=== PATIENT | female | born 1950 | race Caucasian/White ===

== ENCOUNTER 2022-05-18 06:45 | Day surgery (SDC) | payer MEDICARE, BC, SELFPAY ==
[2022-05-18] MEDS: LACTATED RINGERS 1000 ML 1,000 ML 100 ML IV ×2 (07:00→11:37)
[2022-05-18 07:20] VITALS: BP 171/82; PULSE 65; RESP 16; TEMP 36.9; O2SAT 97
[2022-05-18 07:23] VITALS: BMI 23.1
--- NOTE | 2022-05-18 08:15 | CRLHL7_ITS ---
For Patients: As a result of the Century Cures Act, medical imaging exams and procedure reports are released immediately into your electronic medical record. You may view this report before your referring provider. If you have questions, please contact your health care provider. HISTORY: 72-year-old female. Left breast cancer. TECHNIQUE: 0.75 millicuries of [id number] sulfur colloid was injected in the left breast for sentinel lymph node localization. Images were not obtained. Dictated by Dante Craig MD @ 05/18/2022 8:52:11 AM (Electronically Signed)
[2022-05-18] MEDS: CEFAZOLIN 2 GM INJ IVP (09:25)
[2022-05-18] MEDS: ISOSULFAN BLUE 5 ML VIAL 3 ML INJECTION (09:27)
[2022-05-18] MEDS: BUPIVACAINE 0.25% 30 ML 10 ML INJECTION (09:40)
[2022-05-18] MEDS: LIDOCAINE 0.5%-EPI 1:200,000 50 ML VIAL 10 ML INJECTION (09:40)
--- NOTE | 2022-05-18 09:54 | CRLHL7_ITS ---
For Patients: As a result of the Cures Act, medical imaging exams and procedure reports are released immediately into your electronic medical record. You may view this report before your referring provider. If you have questions, please contact your health care provider. LEFT BREAST SPECIMEN RADIOGRAPH INDICATION: Breast cancer. Lumpectomy. TECHNIQUE: Single specimen radiograph of resected LEFT breast tissue. FINDINGS: The breast specimen contains a biopsy clip, microcalcifications, and an area of apparent spiculation. IMPRESSION: LEFT breast specimen radiograph as described. ACR not applicable Dictated by: Enrique Mcdowell MD @05/18/2022 11:00:26 AM jj/Dictated by: Enrique Mcdowell MD @ 05/18/2022 11:00:00 AM (Electronically Signed)
--- NOTE | 2022-05-18 10:05 | SUR.OPER ---
PATIENT QUESTIONS ANSWERED SATISFACTORILY PREOPERATIVELY.? PATIENT BROUGHT TO OR #3 PER CART.? Patient positioned supine on OR #1 bed.? The perioperative?team supported arms bilaterally on arm boards.? Final approval of positioning by surgeon.? SAFETY TIME OUT PREFORMED PRIOR TO INFECTION OF ISOSULFAN BLUE BY Gonzalo REA MD AT 09:27.
[2022-05-18 12:15] VITALS: BP 142/76; PULSE 59; RESP 14; TEMP 36.1; O2SAT 98
--- NOTE | 2022-05-18 12:22 | PM.GSPRC ---
Operative Note Date of procedure: 05/19/22 Type of Procedure: 1. Left lumpectomy. 2. Left Axillary lymph node dissection. Procedure Description: After discussing the risks and benefits of the procedure, the patient signed informed consent.? The operative site was marked and the patient was brought to the operating room and placed on the operating table in supine position.? Care was taken to pad the patient's pressure points.?? The patient was then sedated] by anesthesia.?? The operative site was then prepped and draped in the usual sterile fashion.? A time-out was then performed. ? The mixture of Lidocaine and Marcaine was used as local anesthetic and was injected at the site of the incision. A slightly oblique elliptical skin incision was made in the left breast at 5:00 around the area of skin puckering. This was done with a scalpel. Subcutaneous fat and breast tissue were then dissected with cautery. With frequent palpation of the left breast mass, it was excised with cautery. Margins of the specimen were inked and the specimen was then sent to mammography first to confirm presence of the wire and the clip and to pathology afterwards for gross margins. Mammography confirmed the presence of the clip. While pathology was examining the specimen for margins, we proceeded with the sentinel lymph node biopsy. The radioactive tracer was injected personally by me in the preoperative area. At least 1 hour was given for the tracer travel to the left axilla. Three ml (milliliters) of Lymphazurin blue was personally injected by me near the left nipple for sentinel lymph node identification. This was done prior to making lumpectomy incision. A [place] counter was brought onto the field in the Left axilla to identify the best area for the sentinel node biopsy. The signal was very weak. An oblique skin incision was then made over that area. Subcutaneous tissues were dissected with electrocautery. Deltopectoral fascia was incised with cautery. I spent a lot of time looking for sentinel node however the signal was almost non-existent. With palpating the left axilla, I identified a firm node at the lateral edge of the pectoralis muscle. This was concerning for grossly metastatic disease. I elected to proceed with left axillary node dissection. Multiple firm nodes were palpated at the lateral edge of the pectoralis muscle. The pectoralis muscle was retracted and these firm nodes as well as other laila tissue posterior to pectoralis minor were excised with cautery. Hemostasis was achieved with clamps and ties and with cautery. The superior border of the axilla was identified as the left axillary vein. Axillary fat below the axillary vein was placed under tension and carefully dissected off with cautery. Thoracodorsal bundle including the nerve was identified and retracted laterally. Long thoracic nerve was identified medially and was overlying serratus anterior muscle. This was left undisturbed. Care was taken not to injure those structures during the dissection. I attempted to spare the intercostal brachial cutaneous nerves but this was not possible because some of them were going through the plain of dissection and into the firm matted axillary nodes. Axillary fat was then further mobilized with cautery and when it was free, it was then removed. This was sent to pathology as the left axillary node dissection. A 19 Brian drain was placed into the axilla through a separate stab skin incision in the left lateral chest. This was secured to the skin with a nylon suture. The deltopectoral fascia was then reapproximated with interrupted 3-0 Vicryl sutures. The dermis of the axillary incision was then reapproximated with interrupted 3-0 Vicryl sutures. Pathologist reviewed the specimen and the tumor. The tumor was described as large and abutting the superior and posterior margins. Removal of additional margins was recommended. A new superior margin was excised with cautery. This was inked for orientation and sent to pathology for permanent section. A new posterior margin was excised with cautery as well. This mostly involved the pectoralis fascia. This was inked for orientation and sent to pathology as a new posterior margin. Surgical field was examined for bleeding and any bleeding was controlled with electrocautery. The incisional cavity was then irrigated with saline. Vascular clips were used to kishan the place where the tumor was excised. Breast tissue was mobilized with cautery for tension free closure and re-approximated with interrupted 2-0 Vicryl stitches. Interrupted subdermal stitches were placed with 3-0 Vicryl as well and skin of all incisions was closed with 4-0 Monocryl subcuticular stitch. Steristrips and sterile dressings were applied. Patient's chest was wrapped with 4 inch Gary wrap. At the end of the operation, all sponge, instrument, and needle counts were correct. Patient tolerated the procedure well and was transferred to same-day surgery in stable condition. Findings: Gross disease was found in the left axilla. I proceeded with left axillary node dissection. Anesthesia: MAC and local Surgeon: Jose Luis Bourgeois MD Estimated blood loss (mL): 15 Condition: stable Disposition: PACU
[2022-05-18 12:45] VITALS: BP 133/82; PULSE 60; RESP 14; O2SAT 93
[2022-05-18] MEDS: HYDROCODONE-ACETAMIN 5-325 MG 1 TAB PO (12:55)
[2022-05-18 13:14] VITALS: BP 129/75; PULSE 66; RESP 14; O2SAT 94
--- NOTE | 2022-05-18 13:58 | W.ANESCHARGE ---
Anesthesia Charges Start Date/Time Anesthesia Start Date: 05/18/22 Anesthesia Start Time: 09:18 Stop Date/Time Anesthesia Stop Date: 05/18/22 Anesthesia Stop Time: 12:10 Summary Emergency: No Extremes of Age: Over 70-CPT 39766
== END 2022-05-18 16:20 | disposition home or self-care (01) ==
PROVIDERS: PCP Family Medicine; Visit Provider Surgery
PROC: (CPT 19301; principal; 2022-05-18 09:15)
DX: C50.512 Malignant neoplasm of lower-outer quadrant of left female breast (principal); C77.3 Secondary and unspecified malignant neoplasm of axilla and upper limb lymph nodes; Z17.0 Estrogen receptor positive status [ER+]
CPT/HCPCS: 19301; 38525; 00400; 38792; 88307; 88342; 88360; 88377; 99100; A9270; A9541; J0690; J1100; J2250; J2405; J2704; J3010; J3490; J7120

== ENCOUNTER 2022-05-25 09:31 | Outpatient (CLI) | payer MEDICARE, BC, SELFPAY ==
[2022-05-25 14:53] LABS: SARS PCR* Negative SARS-CoV-2 (Negative)
== END 2022-05-25 09:32 | disposition home or self-care (01) ==
LOC: KYNREF 09:31
PROVIDERS: PCP Family Medicine; Visit Provider Surgery
DX: Z20.822 Contact with and (suspected) exposure to COVID-19 (principal)
CPT/HCPCS: 87635

== ENCOUNTER 2022-05-26 06:02 | Day surgery (SDC) | payer MEDICARE, BC, SELFPAY ==
[2022-05-26] VITALS (23 sets, daily range): BP systolic 111–151; BP diastolic 57–79; PULSE 60–85; RESP 16; TEMP 36.2–36.9; O2SAT 92–100
[2022-05-26] MEDS: SODIUM CHLORIDE 0.9 % (FLUSH) 10 ML SYRINGE IVF (07:04)
[2022-05-26] MEDS: LACTATED RINGERS 1000 ML 1,000 ML 100 ML IV (07:05)
[2022-05-26] MEDS: CEFAZOLIN 2 GM INJ IVP (08:37)
--- NOTE | 2022-05-26 08:57 | P.NB_ITS ---
Nerve Block Nerve Block Date Seen: 05/26/22 Type of block requested by surgeon for post-operative analgesia: intercostal and intercostal add on Side: left Time out performed: Yes Verification of patient name: Yes Verification of date of : Yes Site marking: site marked Name of person performing procedure: Barrett Continuous monitoring Was continuous monitoring of O2 sat, B/P, residential monitor, recorded every 15 minutes?: Yes Procedure Checklist: sterile prep, needles and gloves Ultrasound guided. Images saved: Yes Medications given in 5ml increments after negative aspiration: Marcaine %: 0.25 mL: 20 Needle gauge: 20 and Exparel mL: 10 Needle gauge: 20 Patient tolerated procedure well: Yes Block Charges Block Charge (with Pro Fee): Intercostal Nerve Block Use of Ultrasound Machine for Block: Yes- US Guidance/pain block
[2022-05-26] MEDS: LACTATED RINGERS 1000 ML 1,000 ML 75 ML IV ×2 (10:07→22:17)
--- NOTE | 2022-05-26 10:16 | W.ANESCHARGE ---
Anesthesia Charges Start Date/Time Anesthesia Start Date: 05/26/22 Anesthesia Start Time: 08:28 Stop Date/Time Anesthesia Stop Date: 05/26/22 Anesthesia Stop Time: 10:11 Summary Emergency: No Extremes of Age: Over 70-CPT 32608
--- NOTE | 2022-05-26 10:29 | W.ANESCHARGE ---
Anesthesia Charges Start Date/Time Anesthesia Start Date: 05/26/22 Anesthesia Start Time: 08:28 Stop Date/Time Anesthesia Stop Date: 05/26/22 Anesthesia Stop Time: 10:11 Summary Emergency: No Extremes of Age: Over 70-CPT 84142
--- NOTE | 2022-05-26 12:29 | PM.GSPRC ---
Operative Note Date of procedure: 05/26/22 Type of Procedure: 1. Completion left mastectomy. Procedure Description: After discussing the risks and benefits of the procedure, the patient signed informed consent.? The operative site was marked and the patient was brought to the operating room and placed on the operating table in supine position.? Care was taken to pad the patient's pressure points.?? The patient was then intubated by anesthesia.? The left axillary drain was removed. The operative site was then prepped and draped in the usual sterile fashion.? A time-out was then performed. An elliptical left breast skin incision was made around the nipple-areolar complex and a previous lumpectomy incision using a scalpel.? Dermis was divided with cautery.? Khadijah and Rich retractors were used for retraction throughout the case.? Skin flaps were developed circumferentially in a relatively avascular placed between subcutaneous fat and breast tissue using manual traction between the skin flaps and breast tissue.? Small amount of serous fluid was noted in the lumpectomy cavity and minimal ecchymosis was noted in the inferior breast. Dissection was performed to just below the clavicle superiorly, to the lateral border of pectoralis major muscle laterally, to the sternal border medially, and to the inframammary fold inferiorly.? This was all done with cautery.? Laterally, scar tissue from previous axillary node dissection cavity was mobilized off the breast but the cavity was not entered. Hemostasis throughout the case was achieved with cautery and Vicryl ties. ? When the breast tissue was dissected circumferentially, it was then removed in a medial to lateral fashion from Pectoralis using electrocautery. The pectoralis major fascia was included with the specimen. The previous lumpectomy cavity was visualized. Vascular clips placed during lumpectomy were noted overlying the pectoralis muscle. Those were left in place. The specimen was labeled for orientation with a short double stitch at 12:00/superior and single stitch lateral, and sent to pathology.? Mastectomy cavity was irrigated with normal saline.? Hemostasis was achieved with cautery.? A 15F Brian drain was placed inferior and lateral to the breast through a small stab incision and secured in place with nylon suture. Patient's axillary drainage was decreasing. The decision was made not to insert a new drain into the left axilla to preserve an already healing surgical space. The edges of surgical incision were re-approximated using interrupted 2-0 and 3-0 Vicryl sutures.? The skin was closed with a running subcuticular 4-0 Monocryl stitch. Steri strips, sterile fluffs, and ABD pad were applied over the incision.? A drain sponge was placed under the drain.? The chest was wrapped with an Gary wrap.? ? ? The patient was then woken and transported to the recovery area in stable condition. ? The patient tolerated the procedure well. Findings: Lumpectomy cavity was noted with minimal amount of serous fluid and no significant postoperative clot. Anesthesia: GETA Surgeon: Jose Luis Bourgeois MD Estimated blood loss (mL): 10 Condition: stable Disposition: PACU
[2022-05-26] MEDS: HYDROCODONE-ACETAMIN 5-325 MG 1 TAB PO (13:47)
[2022-05-26] MEDS: CEFAZOLIN 1 GM in 0.9 % SODIUM CHLORIDE Mini-bag 100 ML IVPB ×2 (14:21→22:07)
--- NOTE | 2022-05-26 16:08 | PC.NURSE ---
Patient arrived in her hospital bed from PACU s/p left mastectomy with Dr. Bourgeois to room 257 @ 10:57 am. Please see initial assessment from PACU and frequent post op VS. Pt rated her pain 1 out of 10 initially. Later pt received [place] one tab PO for pain 4 out of 10. Pain 2 of 10 after narcotic pain medication. One gram of IV ATB Ancef infused prior to shift change. Pt tolerated CL lunch, 750 cc out in urine. Report provided to Sharon Young RN for evening shift.
[2022-05-26] MEDS: ACETAMINOPHEN 325 MG TABLET 650 MG PO (22:18)
--- NOTE | 2022-05-26 23:21 | PC.NURSE ---
End of Shift ([id number]): Patient pleasant and cooperative. Afebrile. Denies pain. Dressing to left chest C/D/I. Up to bathroom and chair with SBA. Tolerating regular diet with no nausea. XAVIER drain patent and emptied x2 of bloody drainage.
[2022-05-27 03:00] VITALS: BP 117/70; PULSE 71; RESP 18; TEMP 36.6; O2SAT 96
[2022-05-27] MEDS: CEFAZOLIN 1 GM in 0.9 % SODIUM CHLORIDE Mini-bag 100 ML IVPB (06:13)
[2022-05-27] MEDS: HYDROCODONE-ACETAMIN 5-325 MG 1 TAB PO ×2 (06:36→10:36)
--- NOTE | 2022-05-27 06:53 | PC.NURSE ---
[id number]: Patient pleasant and cooperative. Rates pain 1-2/10. PRN Tylenol x1 and Nemacolin X1 administered for relief. Ice offered but declined. XAVIER drain patent and draining small amounts of serosanguineous fluid. Gary wrap to upper torso C/D/I. Dressing to XAVIER insertion site changed d/t moderate amount of dried blood. SBA. Denies N/V. Eating and voiding.
[2022-05-27 07:36] VITALS: BP 125/75; PULSE 73; RESP 16; TEMP 36.6; O2SAT 95
--- NOTE | 2022-05-27 09:21 | P.DS_ITS ---
DS: Providers Provider Date Seen: 05/27/22 Primary care physician: Licha Washburn DO Attending Physician on discharge: Jose Luis Bourgeois MD DS: Summary Hospital Course Hospital Course: Patient was admitted to the hospital for observation after she underwent left completion mastectomy. She did well postoperatively. She had minimal pain. Her drain output was serosanguineous and as expected. Patient has minimal area of skin hyperemia at the medial mastectomy incision. This is concerning for possible early skin necrosis. Will apply Nitroglycerine cream over this spot. Time Spent with Patient Time attestation: Total time spent providing and/or coordinating discharge services: Exam Narrative: Exam Narrative: Chest: Left mastectomy incision is with Steri-Strips. There is no evidence of expanding hematoma. At the medial inferior mastectomy incision there is small area of hyperemia measuring approximately 1.5 cm in length that is concerning for skin congestion. Serosanguineous drain output was noted. The left axillary soft tissues are slightly prominent suggestive of possible seroma. Const: Vital Signs, click to edit/add: Vital Signs - 24 hr 05/26/22 10:06 05/26/22 10:10 05/26/22 10:26 Temperature 97.1 F L 97.1 F L 97.1 F L Pulse Rate 70 65 65 Pulse Rate [Left P ulse Oximeter] Respiratory Rate 16 16 16 Blood Pressure 122/57 L 111/60 131/65 Blood Pressure [Ri ght Arm] Pulse Oximetry 99 100 100 Oxygen Delivery Me thod OxyMask OxyMask Room Air Oxygen Flow Rate 7 7 05/26/22 10:15 05/26/22 10:20 05/26/22 10:33 Temperature 97.1 F L 97.1 F L 97.1 F L Pulse Rate 70 66 68 Pulse Rate [Left P ulse Oximeter] Respiratory Rate 16 16 16 Blood Pressure 126/66 129/63 142/65 H Blood Pressure [Ri ght Arm] Pulse Oximetry 99 99 100 Oxygen Delivery Me thod OxyMask OxyMask Room Air Oxygen Flow Rate 7 7 05/26/22 10:36 05/26/22 10:57 05/26/22 11:00 Temperature 97.1 F L 97.5 F L 97.5 F L Pulse Rate 71 68 Pulse Rate [Left P ulse Oximeter] 69 Respiratory Rate 16 16 16 Blood Pressure 142/61 H Blood Pressure [Ri ght Arm] 139/79 141/77 H Pulse Oximetry 97 94 Oxygen Delivery Me thod Room Air Room Air Room Air Oxygen Flow Rate 7 05/26/22 13:52 05/26/22 11:15 05/26/22 11:30 Temperature Pulse Rate Pulse Rate [Left P ulse Oximeter] 60 60 63 Respiratory Rate 16 16 16 Blood Pressure Blood Pressure [Ri ght Arm] 132/73 132/73 128/65 Pulse Oximetry 92 92 94 Oxygen Delivery Me thod Room Air Room Air Room Air Oxygen Flow Rate 1 1 1 05/26/22 11:45 05/26/22 12:00 05/26/22 12:30 Temperature Pulse Rate Pulse Rate [Left P ulse Oximeter] 65 70 74 Respiratory Rate 16 16 16 Blood Pressure Blood Pressure [Ri ght Arm] 137/66 142/68 H 145/75 H Pulse Oximetry 93 94 93 Oxygen Delivery Me thod Room Air Room Air Room Air Oxygen Flow Rate 1 05/26/22 13:00 05/26/22 14:00 05/26/22 15:00 Temperature 97.7 F Pulse Rate Pulse Rate [Left P ulse Oximeter] 63 65 64 Respiratory Rate 16 16 16 Blood Pressure Blood Pressure [Ri ght Arm] 148/70 H 146/70 H 147/65 H Pulse Oximetry 95 94 95 Oxygen Delivery Me thod Room Air Room Air Room Air Oxygen Flow Rate 05/26/22 16:00 05/26/22 17:00 05/26/22 19:00 Temperature 98.0 F Pulse Rate Pulse Rate [Left P ulse Oximeter] 67 61 84 Respiratory Rate 16 16 16 Blood Pressure Blood Pressure [Ri ght Arm] 141/66 H 123/65 134/64 Pulse Oximetry 95 96 94 Oxygen Delivery Me thod Room Air Room Air Room Air Oxygen Flow Rate 05/26/22 22:48 05/27/22 03:00 05/27/22 07:36 Temperature 97.7 F 97.9 F 97.9 F Pulse Rate Pulse Rate [Left P ulse Oximeter] 73 71 73 Respiratory Rate 16 18 16 Blood Pressure Blood Pressure [Ri ght Arm] 151/68 H 117/70 125/75 Pulse Oximetry 96 96 95 Oxygen Delivery Me thod Room Air Room Air Room Air Oxygen Flow Rate Discharge Plan Discharge Disposition: Home, Self-Care Discharging Surgeon: Jose Luis Bourgeois Follow-Up Appointment: [facility] Jun 07 Prescriptions: No Action ibuprofen 200 mg capsule 200 mg PO Q6H PRN hydrocodone-acetaminophen 5-325 mg tablet 1 - 2 tab PO Q6H PRN (Reason: pain) Qty: 30 0RF Activity Detail: No strenuous activity with the left arm. Avoid lifting left arm above the shoulder level or lifting anything more than 15 lb for 4 weeks. Discharge Diet: Regular Patient Instructions: Hydrocodone/Acetaminophen (By mouth), Ibuprofen (By mouth), [place] Drain Care (DC), Surgical Site Infections (DC), Deep Sedation (DC), Post-Operative Instructions: Breast Surgery Additional Instructions: The dressings over the mastectomy incision should be changed daily. The drain site needs to be cleaned daily and a new drain sponge placed daily under the drain. The drain should be stripped at least 3 times a day and emptied as needed. Record the drain output daily. Continue wearing Gary wrap over the chest for 2 weeks. Follow-up: Jose Luis Bourgeois MD [Staff Physician] - (1 wk at [facility]) Discharge Orders: Discharge Order (Routine); Ordered 05/27/22 Ordered By: Jose Luis Bourgeois
--- NOTE | 2022-05-27 10:48 | PC.NURSE ---
Patient was discharged. Instructions reviewed and understood by patient and her son. PIV taken out of right hand and catheter inact. Incision was clean dry and intact. Nitro paste was lightly placed over the medial and left side of incision per Dr. Bourgeois recommendation, covered with fluff and ABD and wrapped with sharan wrap. Supplies for dressing changes and paste was sent home with patient. XAVIER drain was stripped and empited twice on this shift. Patient's was stripping drain and measuring output at home already and they had no questions about this. Lung sounds clear. Bowel sounds active and LBM last evening. Pain controlled with PO medications. Tolerating a regular diet. Voiding without difficulty. Ambulating independently. Vital signs within normal limits. Has follow up with Dr. Bourgeois on 06/07 at 130 at [facility]. Patient was scheduled to see Oncology at [facility] at 1400- this was pushed back to 1430 so patient can make both appointments. All questions answered and patient left via ambulatory with son.
--- NOTE | 2022-05-27 15:25 | ONC.NURNOTE ---
Introduced self to patient as one of the Breast Care Navigators; gave card and our gift bag, reviewed resources available. Informed pt we would be in touch with her final pathology; pt does not have any questions at this time.
== END 2022-05-27 10:45 | disposition home or self-care (01) ==
LOC: MEDSURG 06:12 → SS 14:52 → MEDSURG 14:52
PROVIDERS: PCP Family Medicine; Visit Provider Surgery
PROC: (CPT 19303; principal; 2022-05-26 07:30)
DX: C50.912 Malignant neoplasm of unspecified site of left female breast (principal)
CPT/HCPCS: 19303; 400; 64420; 76942; 88307; 99100; A9270; C9290; J0330; J0690; J1100; J1200; J2405; J2704; J3010; J3475; J3490; J7120

== ENCOUNTER 2022-06-10 14:16 | Outpatient (CLI) | payer MEDICARE, BC, SELFPAY ==
--- NOTE | 2022-06-10 15:00 | CRLHL7_ITS ---
For Patients: As a result of the Century Cures Act, medical imaging exams and procedure reports are released immediately into your electronic medical record. You may view this report before your referring provider. If you have questions, please contact your health care provider. Indication: MALIGNANT NEOPLASM OF BREAST Technique: Postcontrast CT chest, abdomen and pelvis. 69 cc Isovue 370 intravenous contrast. Please note that all CT scans at this facility use dose modulation, iterative reconstruction, and/or weight-based dosing when appropriate to reduce radiation dose to as low as reasonably achievable. Comparison: CT abdomen and pelvis 12/07/2013 Findings: In the chest, postoperative changes left mastectomy are present. There are patchy circumscribed fluid collections within the mastectomy bed and within the left axilla, measuring up to 2.2 cm. Less than 1 cm left axillary lymph nodes are present. A small amount of subcutaneous gas is noted within the left anterior chest wall. Surgical fe are noted. The thyroid is normal. Normal right axilla. Less than 1 cm mediastinal and hilar lymph nodes. No aortic dissection or aneurysm. No pulmonary embolism. The ribcage is intact. No fracture or suspicious lesion. 3 millimeter nodule right middle lobe, 3/45. 3 millimeter nodule right middle lobe, 3/48. Ill-defined nodule within the right middle lobe measuring 9 millimeters, 3/62. Lobular nodule left lower lobe measures 12 millimeters, previously measured 9 millimeters, 3/81. Mild linear subsegmental scarring in both lungs. Small nodule left lung apex measuring 4 millimeters, 3/18. Ill-defined nodular density in the posterior right lung apex measuring 7 millimeters, 3/9. Nodule superior segment left lower lobe measuring 6 millimeters, 3/38. Small nodular density within the left lower lobe measuring 3 millimeters, 3/59. No pleural effusion. Subtle nodule right lower lobe measuring 4 millimeters, 3/79. In the abdomen, small intrahepatic cysts are again noted which measure up to 1.5 cm. No suspicious intrahepatic lesion. The gallbladder is absent. No biliary obstruction. Incidental duodenal diverticulum. Spleen normal. Adrenal glands unremarkable. Simple cysts both kidneys. No solid renal mass. No hydronephrosis. No renal stone. No retroperitoneal adenopathy. No evidence of recurrent pancreatitis. In the pelvis, the bladder is normal. The uterus is absent. Sigmoid diverticulosis. No acute diverticulitis. No bowel obstruction or free air. No free fluid or abscess. No pelvic or inguinal adenopathy. No adnexal mass. No fracture. Impression: Multiple bilateral pulmonary nodules measuring up to 1.2 cm. Status post left mastectomy and left axillary lymph node dissection with multiple small circumscribed postop seromas measuring up to 2.2 cm. No evidence of metastatic disease within the abdomen or pelvis. Extensive chronic sigmoid diverticulosis. Please note that all CT scans at this facility use dose modulation, iterative reconstruction, and/or weight-based dosing when appropriate to reduce radiation dose to as low as reasonably achievable. Dictated by Anuel Charles MD @ 06/11/2022 3:19:31 PM (Electronically Signed)
[2022-06-10 15:02] LABS: Creatinine* 0.8 mg/dL (0.5-1.5); Estimated Glomerular Filt Rate 78 ml/min
== END 2022-06-10 14:17 | disposition home or self-care (01) ==
LOC: CT 14:17
PROVIDERS: PCP Family Medicine; Visit Provider Nurse Practitioner Family
DX: C50.919 Malignant neoplasm of unspecified site of unspecified female breast (principal); R91.8 Other nonspecific abnormal finding of lung field; R59.0 Localized enlarged lymph nodes; K57.30 Diverticulosis of large intestine without perforation or abscess without bleeding
CPT/HCPCS: 36415; 71260; 74177; 82565; Q9967

== ENCOUNTER 2022-06-17 14:29 | Outpatient (CLI) | payer MEDICARE, BC, SELFPAY ==
--- NOTE | 2022-06-17 14:45 | CRLHL7_ITS ---
For Patients: As a result of the 21st Century Cures Act, medical imaging exams and procedure reports are released immediately into your electronic medical record. You may view this report before your referring provider. If you have questions, please contact your health care provider. INDICATION: History of left-sided breast cancer status post left mastectomy. Patient with pulmonary nodules on recent CT. Exam is being performed for staging. TECHNIQUE: Patient received 8.0 millicuries of 18 FDG (18 fluorodeoxyglucose) intravenously. PET-CT imaging has been performed from the mid skull to mid thigh level at [address] images have been obtained for attenuation correction and localization only. Blood glucose level: 91 mg/dL. COMPARISON: 06/10/[address] FINDINGS: Within the chest no abnormal uptake is identified within the mediastinum or hilar region. There are small mediastinal lymph nodes without abnormal uptake. Internal mammary region demonstrates no significant abnormal uptake. There are postsurgical changes from a left mastectomy. There is heterogeneous soft tissue density and increased activity within the adjacent soft tissues consistent with recent postsurgical change. The left axilla demonstrates postsurgical change. Small residual fluid collection noted. No significant hypermetabolic lymph nodes are noted. The right breast and axilla demonstrates no significant abnormal uptake. Mild activity along the right nipples identified, favored to be physiologic. Lungs demonstrate scattered pulmonary nodules. 1.2 cm nodule medial left lung base is identified, SUV max 1.3. 0.8 x 0.6 cm pulmonary nodule posterior left lung base, SUV max 1.4. This nodule has increased from the prior exam and is likely benign. Linear nodule lateral right middle lobe is identified measuring 1.4 x 0.6 cm, SUV max is 0.7. Apical nodule posteriorly on the right is noted, SUV max 0.9. Overall, no significant hypermetabolic pulmonary nodules are seen. The neck demonstrates no significant abnormal uptake. Skull base is unremarkable. Liver and spleen demonstrate no significant abnormal uptake. Patient is status post cholecystectomy. Benign appearing circumscribed hypodensity medial liver is noted which is photopenic. The pancreas and bilateral adrenal glands demonstrate no significant abnormal uptake. Exophytic upper medial right renal cyst is identified without abnormal uptake. The retrocrural region and retroperitoneum demonstrate no abnormal uptake. There are moderately advanced diverticular change of the colon. Focal area of inflammatory change and increased activity is identified in the sigmoid colon anteriorly in the left lower quadrant, SUV max is 6.6. Otherwise physiologic bowel activity noted. No suspicious skeletal lesions are seen. IMPRESSION: 1. There are multiple pulmonary nodules. All nodules demonstrate low uptake of radiotracer. SUV max is 1.4. Recommend these be followed by chest CT. 2. There are postsurgical changes from a left mastectomy with increased activity along the left chest wall felt to be postsurgical. 3. Focus of mild diverticulitis left lower quadrant adjacent to multiple diverticula the sigmoid colon. No abscess is seen. Recommend antibiotic therapy. 4. No suspicious findings for metastatic disease to the abdomen or pelvis. Dictated by Ej Alexandre MD @ 06/23/2022 11:56:33 AM (Electronically Signed)
== END 2022-06-17 14:30 | disposition home or self-care (01) ==
LOC: RAD 14:29
PROVIDERS: PCP Family Medicine; Visit Provider Nurse Practitioner Family
DX: C50.312 Malignant neoplasm of lower-inner quadrant of left female breast (principal); R91.8 Other nonspecific abnormal finding of lung field; K57.92 Diverticulitis of intestine, part unspecified, without perforation or abscess without bleeding
CPT/HCPCS: 78815; A9552

== ENCOUNTER 2022-06-30 13:55 | Outpatient (CLI) | payer MEDICARE, BC, SELFPAY ==
--- NOTE | 2022-06-30 14:30 | CRLHL7_ITS ---
For Patients: As a result of the Century Cures Act, medical imaging exams and procedure reports are released immediately into your electronic medical record. You may view this report before your referring provider. If you have questions, please contact your health care provider. DXA BONE MINERAL DENSITY STUDY Reason for exam: Osteopenia. Breast cancer. Initiation of long-term AI use. Current height (in): 66.0 Weight (lb): 142.0 Menopause age: 50 Ethnicity: White 1. Have you had a previous hip or vertebral fracture? No. 2. Have you had any fractures during your adult life which did not result from significant trauma (e.g., auto accident)? No. 3. Did either of your parents have a hip fracture? Yes. 4. Do you smoke? No. 5. Have you ever taken Glucocorticoids? No. 6. Do you have rheumatoid arthritis? No. 7. Do you have secondary osteoporosis? No. 8. Do you drink 3 or more alcoholic drinks per day? No. 9. Are you being treated for osteoporosis? No. 10. Have you ever taken any of the following medications: Actonel, Evista, Fosamax, Miacalcin, Reclast, Boniva, Forteo, HRT (i.e. estrogen/hormone therapy), Protelos, Prolia, Vitamin D, Calcium, other ??? please specify. ANSWER: Yes, Vitamin D, calcium. 11. Do you have any of the following medical conditions: Anorexia or bulimia, asthma or emphysema, end stage renal disease, hyperparathyroidism, any seizure disorders, cancer, inflammatory bowel diseases, hysterectomy, other ??? please specify. ANSWER: Yes, cancer, hysterectomy. 12. What was your maximum height (inches)? 66. 13. Do you perform weight bearing exercise regularly? No. 14. Do you regularly consume dairy products? Yes. 15. Do you drink caffeinated beverages? Yes. 16. At what age did your period start? 12. 17. Are you premenopausal? No. 18. How many full term pregnancies have you had? 2. 19. Have you ever missed your period for more than 6 months in a row (not including or menopause)? No. TECHNIQUE: Bone mineral density study was performed using the [employer]. FINDINGS: The results of the study expressed as bone mineral density (BMD) are as follows: Lumbar spine L2 to L4: BMD: 0.919 g/cm2. T-score: -1.5. Z-score: 0.9. Neck Left: BMD: 0.672 g/cm2. T-score: -1.6. Z-score: 0.3. Right: BMD: 0.693 g/cm2. T-score: -1.4. Z-score: 0.5. Total Left: BMD: 0.751 g/cm2. T-score: -1.6. Z-score: 0.1. Right: BMD: 0.762 g/cm2. T-score: -1.5. Z-score: 0.1. IMPRESSION: Osteopenia. *Comparison exams done prior to 12/2019 were performed on different unit, [place]. FRAX 10-year Fracture Risk Major Osteoporotic Fracture: 16 percent Hip Fracture: 5.1 percent Reported Risk Factors: [place] () Neck BMD=0.672, BMI=22.9, parental fracture. Anuel Charles M.D. Diagnostic Radiologist [email or web address] DSM/karina PT/Dictated by: Anuel Charles MD @ 07/01/2022 9:17:00 AM (Electronically Signed)
== END 2022-06-30 13:56 | disposition home or self-care (01) ==
LOC: RAD 13:56
PROVIDERS: PCP Family Medicine; Visit Provider Nurse Practitioner Family
DX: M85.80 Other specified disorders of bone density and structure, unspecified site (principal); C50.919 Malignant neoplasm of unspecified site of unspecified female breast
CPT/HCPCS: 77080

== ENCOUNTER 2022-10-09 13:49 | Emergency (ER) | payer MEDICARE, BC, SELFPAY ==
[2022-10-09 13:54] VITALS: BP 138/75; PULSE 78; RESP 16; TEMP 36.6; O2SAT 96; BMI 22.3
--- NOTE | 2022-10-09 14:11 | ED_ITS ---
HPI - Female Genitourinary General Chief complaint: Urogenital Problems, Female Stated complaint: Bladder issues/infection Time Seen by Provider: 10/09/22 14:00 History of Present Illness HPI Narrative: This 72-year-old female comes in reporting symptoms of dysuria that began last evening. She has pain with voiding urine. She states that she has had urinary tract infections in the past and these symptoms are similar. She is undergoing chemotherapy and reports that her white count was decreased in the last time it was checked. She arrives here with normal vital signs and has not had any fevers. Related Data Home Medications Medication Instructions Recorded Confirmed ibuprofen 200 mg capsule 200 mg PO Q6H PRN 05/17/22 10/04/22 acetaminophen 500 mg tablet 500 mg PO Q6H PRN 06/07/22 10/04/22 (Tylenol Extra Strength) calcium carb-vit D3-minerals 600 1 tab PO BID 07/19/22 10/04/22 mg calcium-400 unit tablet loperamide 2 mg tablet (Imodium 2 mg PO Q6H PRN 10/04/22 10/04/22 A-D) Previous Rx's Medication Instructions Recorded anastrozole 1 mg tablet 1 mg PO QDAY #90 tabs 07/19/22 abemaciclib 150 mg tablet 150 mg PO BID #60 tabs 07/20/22 cephalexin 500 mg capsule 500 mg PO TID 7 days #21 caps 10/09/22 Allergies Allergy/AdvReac Type Severity Reaction Status Date / Time No Known Drug Allergies Allergy Verified 10/04/22 14:17 Review of Systems Status of ROS: Reports: 10 or more systems reviewed and unremarkable except as noted in History and below Narrative: Constitutional: No fevers, no weight gain or loss. Eyes: No discharge. No vision changes. HENT: No congestion, no sore throat, no ear pain. Cardiovascular: No chest pain, no palpitations. Respiratory: No shortness of breath, no wheezes, no cough. Gastrointestinal: No abdominal pain, no vomiting, no diarrhea. Genitourinary: Pain with voiding urine. No hematuria. Musculoskeletal: Normal range of motion. Skin: No rashes, no pruritis. Neurological: No dizziness, weakness, sensory change, speech change. Endo/Heme/Allergies: No bruising or bleeding. No polydipsia. Pysch: no suicidality, no anxiety, no insomnia. All other systems reviewed and are negative. [facility] Medical History (Updated 10/09/22 @ 14:53 by Lamonte Molina MD) Complication of repair of pelvic floor disorder ?N99.89 - Other postprocedural complications and disorders of genitourinary system (ICD-10) Osteoporosis, unspecified ?M81.0 - Age-related osteoporosis without current pathological fracture (ICD- 10) Surgical History (Updated 05/27/22 @ 09:22 by Jose Luis Bourgeois MD) H/O vein stripping ?Z98.890 - Other specified postprocedural states (ICD-10) H/O: hysterectomy ?Z90.710 - Acquired absence of both cervix and uterus (ICD-10) S/P left mastectomy ?Z90.12 - Acquired absence of left breast and nipple (ICD-10) S/P lymph node biopsy ?Z98.890 - Other specified postprocedural states (ICD-10) Social History Smoking Status: Never smoker How often do you have a drink containing alcohol: 2-4 times a month Alcohol type: wine AUDIT-C Alcohol total score: 2 Non-prescribed substance use: denies use service: No Exam Narrative: Exam Narrative: Constitutional: Well-developed, well-nourished, no acute distress. HEENT: Normocephalic, atraumatic. Neck: Normal range of motion. Nontender. Supple. Heart: Intact distal pulses. Lungs: No chest discomfort. No wheezes, rhonchi, or rales. Abdomen: Nontender. Back: Normal range of motion. Extremities: Normal range of motion. No injury. Skin: Intact. No rash. Warm. No erythema or pallor. Neurologic: No altered sensation. No weakness. Alert and oriented. Psychiatric: No suicidality. No anxiety or depression. No insomnia. Nursing notes and vitals signs are reviewed. Const: Vital Signs, click to edit/add: Vital Signs - 24 hr 10/09/22 13:54 Temperature 97.8 F Pulse Rate [Right Pulse Oximeter] 78 Respiratory Rate 16 Blood Pressure [Le ft Upper Arm] 138/75 Pulse Oximetry 96 Oxygen Delivery Me thod Room Air Course Vital Signs Vital signs: Initial Vital Signs Temperature 97.8 F 10/09/22 13:54 Temperature Source Temporal Artery Scan 10/09/22 13:54 Pulse Rate 78 10/09/22 13:54 Pulse Rhythm Regular 10/09/22 13:54 Respiratory Rate 16 10/09/22 13:54 Blood Pressure 138/75 10/09/22 13:54 Blood Pressure Mean 96 10/09/22 13:54 Blood Pressure Position Sitting 10/09/22 13:54 Pulse Oximetry 96 10/09/22 13:54 Oxygen Delivery Method Room Air 10/09/22 13:54 Vital Signs Temperature 97.8 F 10/09/22 13:54 Pulse Rate 78 10/09/22 13:54 Respiratory Rate 16 10/09/22 13:54 Blood Pressure 138/75 10/09/22 13:54 Pulse Oximetry 96 10/09/22 13:54 Oxygen Delivery Method Room Air 10/09/22 13:54 Temperature 97.8 F 10/09/22 13:54 Pulse Rate 78 10/09/22 13:54 Respiratory Rate 16 10/09/22 13:54 Blood Pressure 138/75 10/09/22 13:54 Pulse Oximetry 96 10/09/22 13:54 Oxygen Delivery Method Room Air 10/09/22 13:54 MDM - Female Genitourinary MDM Narrative Medical decision making narrative: This patient comes in with symptoms of dysuria. Urinalysis does confirm obvious signs of urinary tract infection. Her vital signs are normal. She is okay to be discharged home with a prescription for Keflex. At the time of discharge the patient appears safe for outpatient management. The treatment plan is reviewed along with written and verbal return precautions. Reasons to return and the importance of close followup were also reviewed. Lab Data Labs: Lab Results 10/09/22 Range/Units 14:17 Urine Color Yellow (Yellow) Urine Appearance Cloudy A (Clear) Urine pH 5.5 (5.0-8.5) Ur Specific [place] >= 1.030 (1.000-1.030) Urine Protein 2+ A (Negative) Urine Glucose (UA) Negative (Negative) Urine Ketones Negative (Negative) Urine Blood 2+ A (Negative) Urine Nitrite Negative (Negative) Urine Bilirubin Negative (Negative) Urine Urobilinogen 0.2 (0.2-1.0) Ur Leukocyte Esterase 1+ A (Negative) Urine RBC 25-50 A (0-2) Urine WBC >100 A (0-5) Ur Squamous Epith Cells Few (None-Few) Urine Bacteria Moderate A (None) Discharge Plan Discharge Clinical Impression: Urinary tract infection Patient Disposition: Home, Self-Care Condition: Unchanged Additional Instructions: Take medication as prescribed. Follow up with MD return if worsening. Prescriptions: New cephalexin 500 mg capsule 500 mg PO TID 7 Days Qty: 21 0RF No Action calcium carbonate-vit D3-min 600 mg calcium- 400 unit tablet 1 tab PO BID anastrozole 1 mg tablet 1 mg PO QDAY Qty: 90 3RF abemaciclib 150 mg tablet 150 mg PO BID Qty: 60 5RF loperamide [Imodium A-D] 2 mg tablet 2 mg PO Q6H PRN acetaminophen [Tylenol Extra Strength] 500 mg tablet 500 mg PO Q6H PRN ibuprofen 200 mg capsule 200 mg PO Q6H PRN Follow Up/Referrals: Licha Washburn DO [Primary Care Provider] - Stand Alone [facility] Inst[facility]
[2022-10-09 14:28] LABS: Appearance Urine Cloudy (Clear); Bilirubin Urine Negative (Negative); Blood Urine 2+ (Negative); Color Urine Yellow (Yellow); Glucose Urine Negative (Negative); Ketones Urine Negative (Negative); Leukocyte Esterase Urine 1+ (Negative); Nitrite Urine Negative (Negative); Protein Urine 2+ (Negative); Specific Gravity Urine >= 1.030 (1.000-1.030); Urobilinogen Urine 0.2 (0.2-1.0); pH Urine 5.5 (5.0-8.5)
[2022-10-09 14:43] LABS: RBC Urine 25-50 (0-2); Squamous Epithelial Cell Urine Few (None-Few); WBC Urine >100 (0-5)
[2022-10-09 14:44] LABS: Bacteria Urine Moderate
== END 2022-10-09 15:20 | disposition home or self-care (01) ==
PROVIDERS: Emergency Provider Emergency Medicine Emergency Medical Services; PCP Family Medicine
DX: N39.0 Urinary tract infection, site not specified (principal)
CPT/HCPCS: 81001; 87086; 87186; 99283; 99284

== ENCOUNTER 2022-10-13 13:00 | Outpatient (RCR) | payer MEDICARE, BC, SELFPAY ==
--- NOTE | 2022-07-15 14:00 | OT.OPLE ---
OT Outpatient Lymphedema Eval OT Outpatient Lymphedema Eval Start: 07/06/22 12:46 Freq: Status: Active Protocol: Document 07/15/22 12:50 AMB (Rec: 07/15/22 14:00 AMB [id number]) E-signed By Miriam Cloud, OTR/L, CLT, WEBBING TACKER OT Outpatient Evaluation Details Type Type Eval Complexity Low OT OP Lymphedema Evaluation Insurance Information Insurance Information Medicare B Current Condition/Medical Diagnosis Referring Provider Dr Santos Treatment Diagnosis Left Breast Cancer / lymphedema risk Date Of Onset 05/26/22 Medical Contraindications CA,Osteoporosis Current Work Status Current Work Status Retired Subjective Subjective Pt reports to OT to initiate lymphedema surveillance program following her 05/26/[address] with LN biopsy x [address] (+) secondary to cancer (see PMH section). Pt states over-all, she is feeling pretty good. Pt will have consult with radiation oncology on Tuesday and will have a PT evaluation on 07/20/22. Pt Will also be initiating anastrozole. Medical History Medical History Cancer Treatment/Surgery Medical History Comments PMH copied from Oncology consult: #0 Prior to evaluation, patient experienced pain in left breast. One episode of dark nipple discharge from left breast. Skin puckering left breast. Nipple retraction left breast. #1 Diagnostic bilateral verna mammogram and left breast ultrasound 04/15/2022 - left breast irregular hypoechoic mass measuring 2.2 x 2.2 x 2.3 cm with extension into the scan, highly suspicious for malignancy - small grouped indeterminate microcalcifications in right breast. Stereotactic biopsy recommended. - BI-RADS 5 #2 Right breast core stereotactic biopsy 04/22/2022 - atypical lobular hyperplasia . 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 - HER2 by IHC 2+. Fish negative. - Ki-67 18 % - DCIS at present less than 1 mm from margin and re-excision . Atypical ductal hyperplasia present. Proliferative fibrocystic changes present. Atypical lobular hyperplasia present. - positive for malignancy and 3 of 9 lymph nodes, largest is 11 mm. Extracapsular extension present measuring 7 mm. - pathologic stage: PT2 N1a #5 Left breast completion mastectomy 05/26/2022 - focal residual DCIS grade 2- 3, size 3 mm, 2 cm margin - negative for residual invasive carcinoma #6 Medical oncology consult with [facility] 06/07/20[facility]. - Oncotype DX score pending at this time. referral to Radiation pending Oncotype score. Genetics consult scheduled for July 2022. - CT c/a/p and DEXA ordered. Physical therapy referral ordered #7 Results further testing showed: - Oncotype DX score -- 13 - PET scan showing pulmonary nodules with minimal SUV uptake max 1.4 - DEXA scan reported osteopenia with T-score in the -1.4 to -1.6 range Interval Hx: Patient now is seen for further discussion treatment options. She denies any new symptoms. Her breast scar is healing quite well. She is still wants to be very active and is hoping to be able to shovel more snow in the coming weeks. She is set up to see therapy soon to discuss this. [facility] Medical History (Updated 07/08 @ 09:11 by Jv Bucio MD) Complication of repair of pelvic floor disorder Osteoporosis, unspecified Surgical History (Updated @ 09:22 by Jose Luis Bourgeois MD) H/O vein stripping H/O: hysterectomy S/P left mastectomy S/P lymph node biopsy Surgical History Surgical History See above Medications Medications acetaminophen (Tylenol Extra Strength) 500 mg PO Q6H PRN ibuprofen 200 mg PO Q6H PRN Family History Family History of Lymphedema Yes Family History of Lymphedema Comments Pt's mother had breast cancer and developed lymphedema in the 1960's. Living Situation Current Living Situation Home With Spouse Or SO Exercise History Does Patient Exercise Regularly Yes Exercise Comments Pt states she does not go to the gym but walks regularly and enjoys gardening and works a lot around her home. Pain Pain No Pain Comments Pt denies pain today, occasionally a little sore after surgery but not bad Loss of Function/Strength/Mobility Loss Of Function/Strength/Mobility No Compression History Does Patient Currently Wear Compression No During Daytime Does Patient Currently Wear Compression No At Night Current Swelling (Location/Pitting/Texture) Pitting Scale: 0 = No pitting 1+ Tissue returns to normal almost immediately 2+ Tissue returns after 15-30 seconds 3+ Tissue returns after 1-1/2 minutes 4+ Tissue returns after 2-3 minutes N/A Tissue no longer pits due to induration Tissue texture: Soft or indurated Swelling Comments Currently, pt does not show any s/s of lymphedema or abnormal swelling. Circumferential Measurements Upper Extremity Left Upper Extremity MCP 19.5 Palm 19.8 Wrist 15.8 10cm 21.0 20cm 25.0 30cm 28.2 40cm 30.1 Total 159.4 Right Upper Extremity MCP 20.0 Palm 20.5 Wrist 15.8 10cm 21.0 20cm 25.2 30cm 28.4 40cm 30.8 Total 161.7 Assessment Assessment Pt presents post-operatively for initiation of lymphedema surveillance program. Following her 05/26/23 mastectomy with SLN biopsy x 9 , pt is at risk for lymphedema in her LUE / upper quadrant due to LN removal. Pt may need radiation which would add to her risk. Pt will benefit from skilled OT intervention for pt education, monitoring / surveillance in order to provide early detection / intervention to assure best positive outcomes with fewer lymphedema related complications if the need arises. Pt demonstrates good interest and motivation to be an active participant in her care. Pt asked multiple pertinent questions and received satisfactory answers. Pt was given contact info and encouraged to reach out if more questions arise. Currently, pt has no s/s of lymphedema in her left UE / upper quadrant and her incisions are healing well, one small area that pt keeps covered with band aid. Pt has , however, developed axillary cording. Pt will be seeing PT for strengthening and condition, this will be addressed with PT. Problem List Problem List Limited Knowledge of Lymphedema Treatment/Condition /Precautions,Limited Knowledge of Skin Care & Infection Precautions,Significant Risk For Infection For Lymphedema Related Complications,Does Not Have a HEP Patient Goals Patient Goals 1. Pt will demonstrate a general understanding of the lymphatic system, s/s of lymphedema, treatment of lymphedema, implications of untreated lymphedema, s/s of infection and the correlation of infection related to lymphedema. 3 months 2. Pt will be compliant with quarterly assessments for lymphedema surveillance in order to obtain early intervention with best outcomes if needed. 12 months Short Term Goals (# of Weeks) 52 Treatment Plan Treatment Plan Evaluation,Edema Control, Manual Therapy,Wound Care/Scar Management,Therapeutic Exercise,Therapeutic Activities,Self-Care/Home Management,Education Expected Frequency 1 Expected Duration 3mon / prn Certification Certification I Certify That: Therapy Services Provided, Therapy Plan Established, Therapy Plan Reviewed Recertification Information Recertification Information Initial Certification Date 07/15/22 Recertification Due Date 10/13/22 Reasons to Continue Skilled Therapy Initiated OT for lymphedema surveillance program today Rehabilitation Potential Good Continued Plan of Care and Interventions Self monitoring Provider Signature Shows Agreement With POC & Medical Necessity Physician Comment/Change Comment or Changes Physician NPI Number #
--- NOTE | 2022-07-20 15:26 | PT.OPEX ---
PT [place] Outpatient Eval PT [facility] Outpatient Eval Start: 07/20/22 07:25 Freq: Status: Active Protocol: Document 07/20/22 15:20 CLBlu (Rec: 07/20/22 15:25 CLK [id number]) E-signed By Sunni Dickson PT Physical Therapy Outpatient Evaluation Insurance Information Recert Due Date 10/14/22 Insurance Name Medicare B Medical Diagnosis Lt Breast Mastectomy Treating Diagnosis Reduced Lt shoulder AROM Impaired strength Postural Deficit Referring MD Jackie Marc Subjective Subjective Client underwent a lumpectomy with LND on 05/18/22 with Mastectomy on 05/26/22. She is completing PT as baseline initiation of PT interventions this date. She reports feeling like the surgery went well. She sees a chiro regularly for her neck and her LBP. She has had increased LBP with increased time sleeping since having her surgery. She normally sleeps on her Lt side, but that is uncomfortable with recent Lt mastectomy. She is going to start radiation 07/27/22 - 5 days per week for 3 weeks. She is going to have estrogen inhibitor and additional medication with chemo. Appetite remains normal, sleeping is getting better. She denies any new MATOS pain ( some related to her neck chronic pain). She reports having good support with her family. She is not going to have reconstructive surgery. She had her radiation mapping yesterday. Concerned with maintaining her arm overhead for radiation treatment. She states she knows she is weaker , but is starting to resume grocery shopping, cooking, light house work, and did shoveling yesterday without any residual problems Pain Comments average 1-09/17 Date of Last Physician Visit 06/08/22 Date of Surgery (If applicable) 05/26/22 Current Work Status Retired Precautions Treatment Precautions/Contraindications Osteopenia Therapy Limitations/Systems Review Vision Assessment Assessment/Impression 72 yo with DX of Lt lumpectomy with LND 05/18/22 and Lt Mastectomy on 05/26/22. She is Rt dominant and Lt CA involved side. She presents this date as 4 weeks p/o, with Rt shoulder and CX AROM WFL ( some degenerative pain in Rt shoulder, no surgeries - chronic neck pain with slightly reduced AROM EXT and Rt rotation). Lt shoulder AROM is FF 0-155 and ABD 0-141. ER 0-79). PROM is WNL. Palpable cording X 3 bands at Lt mid axilla and referred slightly distally along chest wall, one cord along upper arm approximately 4 inches. She had intra-session gains in AROM of: FF 0-168, ABD 0-158, ER 0-90 deg. She will benefit from continued skilled physical therapy to provide DTM, aggressive cording release DTM, progressive stretch/strength HEP and education in posture. Thank you for this referral. Plan of Care Rehabilitation Potential Good Physical Therapy Goals In 8-10 visits, Addis will be able to report: 1. Ability to maintain Lt arm overhead for radiation treatment, 15 min average 2. AROM WNL pain free to complete overhead tasks of: washing shower, reaching into upper cabinets, reaching groceries on upper shelves 3. Increased strength to allow repetitive UE use for at least 30 min average - meal prep, house cleaning, self cares, laundry 4. Absence of axillar cording with palpation 5. IND in entire HEP for cont home cares and gains in UE use to PLOF Treatment Plan/Direct Interventions Joint Mobilization,Manual Therapy,Neuromuscular Re-ed, Self-Care/Home Management, Therapeutic Activities, Therapeutic Exercises Frequency/Duration 1X/Wk for up to 10 visits Patient Will Be Discharged From Therapy Completion of LTG(s),Skills Plateau,Independent w/HEP, Independently Progressing Discharge Plan Comments Progress with strength and postural tasks as able per radiation treatments. Evaluation Billing Untimed Code Treatment Minutes 25 Complexity Moderate Certification Information Initial Certification Date 07/20/22 Ending Certification Date 10/14/22 Provider Signature Shows Agreement With POC & Medical Necessity Physician Signature & Date Requested Please Sign/Date Here Physician Comment/Change : Physician NPI Number #
--- NOTE | 2022-10-13 15:45 | OT.OPLDN ---
OT Outpatient Lymphedema Daily Note OT Outpatient Lymphedema Daily Note Start: 07/06/22 12:46 Freq: Status: Active Protocol: Document 10/13/22 13:00 AMB (Rec: 10/13/22 13:58 AMB [id number]) E-signed By Miriam Cloud, OTR/L, CLT, [employer]ER OT OP Lymphedema Daily/Progress Note Note Type Note Type Daily,Recert/Progress Note Visit Number 2 Insurance Information Insurance Information Medicare B Current Condition/Medical Diagnosis Referring Provider Dr Santos Treatment Diagnosis Left Breast Cancer / lymphedema risk Date Of Onset 05/26/22 Medical Contraindications CA,Osteoporosis Subjective Subjective Pt here for her second visit of the lymphedema surveillance program. Pt states she has finished 15 treatments of radiation and has stared on oral chemo (Anastrozole) she is also taking Versenio which unfortunately has given her the diarrhea. Pt also states she has found out that her immune system has been compromised secondary to her treatments and she now has a UTI for which she is taking anti-biotics. Pt is looking forward to warmer weather so she can get outside and walk, states she thinks she will feel better and it will be easier to regain her strength. Pt also likes to work in the yard / garden. Home Program Compliant To Home Program Yes Home Program Specifics Self monitoring, good skin care routine with [place] and Aquaphore. Also working on increasing her activity levels. Circumferential Measurements Upper Extremity Left Upper Extremity MCP 19.5 Palm 19.7 Wrist 15.9 10cm 20.4 20cm 25.0 30cm 28.4 40cm 30.3 Total 159.2 Right Upper Extremity MCP 20.0 Palm 20.5 Wrist 15.8 10cm 21.0 20cm 25.2 30cm 28.4 40cm 30.8 Total 161.7 Treatment Self Care Provided review of patient education regarding the lymphatic system, s/s of lymphedema, treatment options for lymphedema, implications of untreated lymphedema, infection and it's correlation to lymphedema as well as implications of untreated infection. Discussed risk reduction practices including skin care and monitoring strategies. Discussed the importance of regular exercise and healthy habits. Self Care Activity Minutes (minutes) 20 Therapeutic Activity Minutes (minutes) 10 Other Interventions Re-assessment of limb circumference and skin condition. Assessment Pt presents for her second visit of the lymphedema surveillance program. Following her 05/26/23 mastectomy with SLN biopsy x 9 , pt is at risk for lymphedema in her LUE / upper quadrant due to LN removal. Pt has had 15 radiation which does add to her risk. Pt will continue to benefit from skilled OT intervention for pt education, monitoring / surveillance in order to provide early detection / intervention to assure best positive outcomes with fewer lymphedema related complications if the need arises. Pt demonstrates good interest and motivation to be an active participant in her care. Pt asked multiple pertinent questions and received satisfactory answers. Pt was given contact info and encouraged to reach out if more questions arise. Currently, pt has no s/s of lymphedema in her left UE / upper quadrant and her incisions have healed well. No axillary cording noted today, pt has full, pain-free AROM in her LUE, strength is WFL throughout as well. Problem List Limited Knowledge of Lymphedema Treatment/Condition /Precautions,Limited Knowledge of Skin Care & Infection Precautions,Significant Risk For Infection For Lymphedema Related Complications,Does Not Have a HEP Patient Goals Patient Goals 1. Pt will demonstrate a general understanding of the lymphatic system, s/s of lymphedema, treatment of lymphedema, implications of untreated lymphedema, s/s of infection and the correlation of infection related to lymphedema. 3 months 2. Pt will be compliant with quarterly assessments for lymphedema surveillance in order to obtain early intervention with best outcomes if needed. 12 months Short Term Goals (# of Weeks) 52 Treatment Plan Treatment Plan Evaluation,Edema Control, Manual Therapy,Wound Care/Scar Management,Therapeutic Exercise,Therapeutic Activities,Self-Care/Home Management,Education Expected Frequency 1 Expected Duration 3mon / prn Treatment Minutes Timed Treatment Minutes 30 Total Timed Treatment Minutes 30 Occupational Therapy Billing Units Billing Units Self Care/Home Management 1 Therapeutic Activities 1 Certification Certification I Certify That: Therapy Services Provided, Therapy Plan Established, Therapy Plan Reviewed Recertification Information Recertification Information Initial Certification Date 07/15/22 Recertification Start Date 10/14/22 Recertification Due Date 01/12/23 Reasons to Continue Skilled Therapy Pt is participating in a lymphedema surveillance program and will benefit from continued surveillance to provide early intervention and treatment in the event that she develops lymphedema in order to achieve best outcomes as well as continued pt education on risk reduction practices. Rehabilitation Potential Good Continued Plan of Care and Interventions Re-assessment quarterly x 12 months Provider Signature Shows Agreement With POC & Medical Necessity Physician Comment/Change Comment or Changes Physician NPI Number #
== END 2023-01-27 23:59 | disposition home or self-care (01) ==
PROVIDERS: PCP Family Medicine; Visit Provider Physician Assistant Surgical
DX: M81.0 Age-related osteoporosis without current pathological fracture (principal); I89.0 Lymphedema, not elsewhere classified; C50.912 Malignant neoplasm of unspecified site of left female breast; Z51.89 Encounter for other specified aftercare
CPT/HCPCS: 97110; 97140; 97162; 97165; 97530; 97535

== ENCOUNTER 2023-01-03 15:24 | Emergency (ER) | payer MEDICARE, BC, SELFPAY ==
[2023-01-03 15:53] VITALS: BP 124/80; PULSE 95; RESP 16; TEMP 36.9; O2SAT 92; BMI 21.0
--- NOTE | 2023-01-03 17:13 | ED_ITS ---
HPI - General Adult General Date Seen: 01/03/23 Chief complaint: Abdominal Pain Stated complaint: acid reflux for weeks Time Seen by Provider: 01/03/23 17:00 Source: patient Mode of arrival: ambulatory Limitations: no limitations History of Present Illness HPI narrative: Patient is a 72-year-old woman currently being treated for breast cancer who comes in with a complaint of epigastric pain which she describes as ?acid. This is been going on for several weeks now, ever since she had a prep for a PET scan. She initially was taking occasional Tums, then add Pepcid, and 5 days ago added Prilosec but does not feel that it is significantly helping. She feels better when she eats, worse if she goes too long between eating. She was having diarrhea related to her chemotherapy but says that is under good control by having a banana every morning. She denies any nausea or vomiting, she has not had any black or bloody stools. Does not take any nonsteroidals and does not drink. Denies prior history of gastritis or peptic ulcer disease, she has never had an endoscopy. She was at the infusion center today and they recommended that she be seen here. Related Data Home Medications Medication Instructions Recorded Confirmed ibuprofen 200 mg capsule 200 mg PO Q6H PRN 05/17/22 12/09/22 acetaminophen 500 mg tablet 500 mg PO Q6H PRN 06/07/22 12/09/22 (Tylenol Extra Strength) calcium carb-vit D3-minerals 600 1 tab PO BID 07/19/22 12/09/22 mg calcium-400 unit tablet loperamide 2 mg tablet (Imodium 2 mg PO Q6H PRN 10/04/22 12/09/22 A-D) abemaciclib 150 mg tablet 150 mg PO .qd 11/01/22 12/09/22 calcium carbonate 300 mg (750 mg) 300 mg PO BID 12/09/22 12/09/22 chewable tablet (Tums) Previous Rx's Medication Instructions Recorded anastrozole 1 mg tablet 1 mg PO QDAY #90 tabs 07/19/22 sucralfate 100 mg/mL oral 10 ml PO QID PRN #414 mL 01/03/23 suspension (Carafate) Allergies Allergy/AdvReac Type Severity Reaction Status Date / Time No Known Drug Allergies Allergy Verified 01/03/23 15:56 Review of Systems Status of ROS: Reports: 10 or more systems reviewed and unremarkable except as noted in History and below [facility] Medical History Complication of repair of pelvic floor disorder ?N99.89 - Other postprocedural complications and disorders of genitourinary system (ICD-10) Osteoporosis, unspecified ?M81.0 - Age-related osteoporosis without current pathological fracture (ICD- 10) Surgical History S/P gilberto ?Z90.49 - Acquired absence of other specified parts of digestive tract (ICD- 10) S/P lymph node biopsy ?Z98.890 - Other specified postprocedural states (ICD-10) S/P left mastectomy ?Z90.12 - Acquired absence of left breast and nipple (ICD-10) H/O vein stripping ?Z98.890 - Other specified postprocedural states (ICD-10) H/O: hysterectomy ?Z90.710 - Acquired absence of both cervix and uterus (ICD-10) Family History Mother Breast cancer, Onset Age: 55 Father Colon cancer Paternal Grandmother Skin cancer Social History Narrative: She lives with her in [facility]. She is retired. She is very active. She does not smoke. Her daughter drives her to appointments. Smoking Status: Never smoker Do you use any of these nicotine containing products: None How often do you have a drink containing alcohol: 2-4 times a month Alcohol type: wine How often do you have six or more drinks on one occasion: Never AUDIT-C Alcohol total score: 2 Non-prescribed substance use: denies use service: No Exam Narrative: Exam Narrative: Vital signs as noted above. In general, an alert, nontoxic woman. She seems very nervous. Head: Normocephalic, atraumatic. Eyes: Pupils are equal reactive. Extraocular movements are full. Conjunctivae are normal. ENT: Mucous membranes are moist. Throat is normal. Neck: Supple without lymphadenopathy. Heart: Regular rate and rhythm. No murmur or rub. Lungs: Clear bilaterally. No increased work of breathing, crackles or wheezes. Abdomen: Soft and nondistended. Really does not have significant abdominal tenderness anywhere. No rebound guarding or rigidity. Bowel sounds are present. Extremities: Well perfused. No edema. No calf tenderness. Pulses intact. Neurologic: Patient is alert and oriented to person and place. Speech is fluent. Face is symmetric. Moves all extremities equally. Affect: Anxious but pleasant. Skin: Warm and dry. Well perfused. Const: Vital Signs, click to edit/add: Vital Signs - 24 hr 01/03/23 15:53 Temperature 98.5 F Pulse Rate [Right Pulse Oximeter] 95 Respiratory Rate 16 Blood Pressure [Ri ght Upper Arm] 124/80 Pulse Oximetry 92 Oxygen Delivery Me thod Room Air Documenting provider has reviewed patient's vital signs: yes Course Course Hospital Course: I think it is reasonable to look for other causes of her epigastric pain such as pancreatitis, choledocholithiasis, she is status post cholecystectomy in 2013. I think other causes for her symptoms such as diverticulitis, colitis, bowel obstruction, aortic pathology, etcetera, are less likely given the duration of her symptoms. Discussed with her that if her testing here is all normal, I would think it would be reasonable at this time to get her set up for endoscopy as an outpatient. Carafate may be helpful for her symptomatically if we do not find an alternate cause for her symptoms. She actually had labs drawn earlier today when she was at the infusion center and I reviewed these, CBC, metabolic panel and LFTs are all normal. I checked a lactate which was 0.9 and a lipase which was 64. She does not have a gallbladder. I do not think with weeks of symptoms and a normal lipase that this represents pancreatitis. I do not think imaging is likely to be particularly beneficial as symptoms seem to be likely related to gastritis or peptic ulcer disease. I have given her a prescription for Carafate, would like her to continue with the omeprazole and I have arranged for an outpatient endoscopy here in the next few days. Primary care follow-up with Dr. Washburn after her endoscopy. Return to the emergency department for acute worsening. Vital Signs Vital signs: Initial Vital Signs Temperature 98.5 F 01/03/23 15:53 Temperature Source Temporal Artery Scan 01/03/23 15:53 Pulse Rate 95 01/03/23 15:53 Pulse Rhythm Regular 01/03/23 15:53 Pulse Strength 3+ Normal 01/03/23 15:53 Respiratory Rate 16 01/03/23 15:53 Blood Pressure 124/80 01/03/23 15:53 Blood Pressure Mean 94 01/03/23 15:53 Blood Pressure Position Sitting 01/03/23 15:53 Pulse Oximetry 92 01/03/23 15:53 Oxygen Delivery Method Room Air 01/03/23 15:53 Vital Signs Temperature 98.5 F 01/03/23 15:53 Pulse Rate 95 01/03/23 15:53 Respiratory Rate 16 01/03/23 15:53 Blood Pressure 124/80 01/03/23 15:53 Pulse Oximetry 92 01/03/23 15:53 Oxygen Delivery Method Room Air 01/03/23 15:53 Temperature 98.5 F 01/03/23 15:53 Pulse Rate 95 01/03/23 15:53 Respiratory Rate 16 01/03/23 15:53 Blood Pressure 124/80 01/03/23 15:53 Pulse Oximetry 92 01/03/23 15:53 Oxygen Delivery Method Room Air 01/03/23 15:53 Medical Decision Making Lab Data Labs: Lab Results 01/03/23 Range/Units 17:45 Lactate 0.9 (0.5-1.9) mmol/L Lipase 64 (23-300) U/L Discharge Plan Discharge Clinical Impression: Epigastric abdominal pain Patient Disposition: Home, Self-Care Condition: Stable Instructions: Epigastric Pain (ED) Additional Instructions: Continue Prilosec, use Carafate as needed. Prescriptions: New sucralfate [Carafate] 100 mg/mL suspension 10 ml PO QID PRNQty: 414 2RF Rx Instructions: swish in mouth and swallow; use after food/drink No Action calcium carbonate-vit D3-min 600 mg calcium- 400 unit tablet 1 tab PO BID anastrozole 1 mg tablet 1 mg PO QDAY Qty: 90 3RF loperamide [Imodium A-D] 2 mg tablet 2 mg PO Q6H PRN abemaciclib 150 mg tablet 150 mg PO .qd acetaminophen [Tylenol Extra Strength] 500 mg tablet 500 mg PO Q6H PRN calcium carbonate [Tums] 300 mg (750 mg) tablet,chewable 300 mg PO BID ibuprofen 200 mg capsule 200 mg PO Q6H PRN Follow Up/Referrals: Licha Washburn DO [Primary Care Provider] - Stand Alone Forms: [facility] Info Instructions
[2023-01-03] MEDS: MAG HYDROX/ALUMINUM HYD/SIMETH 30 ML ORAL.SUSP 15 ML PO (17:31)
[2023-01-03 17:51] LABS: Lactate* 0.9 mmol/L (0.5-1.9)
[2023-01-03 18:10] LABS: Lipase* 64 U/L (23-300)
== END 2023-01-03 19:14 | disposition home or self-care (01) ==
PROVIDERS: Emergency Provider Emergency Medicine; PCP Family Medicine
DX: R10.13 Epigastric pain (principal)
CPT/HCPCS: 36415; 80048; 80053; 80076; 83605; 83690; 85025; 86140; 87338; 99283; 99284; A9270

== ENCOUNTER 2023-01-18 09:29 | Outpatient (CLI) | payer MEDICARE, BC, SELFPAY | END 2023-01-18 09:30 | disposition home or self-care (01) | LOC: OP CLINIC 09:30 | PROVIDERS: PCP Family Medicine; Visit Provider Internal Medicine | DX: Z53.09 Procedure and treatment not carried out because of other contraindication (principal); R09.02 Hypoxemia ==

== ENCOUNTER 2023-01-18 15:10 | Emergency (ER) | payer MEDICARE, BC, SELFPAY ==
[2023-01-18] VITALS (19 sets, daily range): BP systolic 127–154; BP diastolic 77–101; PULSE 77–111; RESP 20; TEMP 36.4; O2SAT 88–100
--- NOTE | 2023-01-18 16:00 | ED.NURSE ---
pt ambulated to the bathroom
--- NOTE | 2023-01-18 16:30 | ED.NURSE ---
listened to pt's lungs, pt became short of breath while sitting upright in the bed
--- NOTE | 2023-01-18 16:59 | ED.GENADULT ---
HPI - General Adult General Chief complaint: Shortness of Breath/Dyspnea Stated complaint: Short of breath Time Seen by Provider: 01/18/23 16:10 History of Present Illness HPI narrative: 72-year-old presenting to the emergency department after being initially seen in clinic anticipating having an endoscopy this morning. Was noted to have low oxygen saturations and elevated heart rate. Was sent here due to concerns of possible pulmonary embolus. She admits she has been short of breath for a few weeks and has been increasing but not short of breath really at rest. Short of breath when walking. No fever no chills. No leg pain or swelling. No unusual weight gain or loss. She is wondering if some of the symptoms began with just increasingly acid stomach. Has had some chemotherapeutic changes due to some concern of potential effect on her stomach. She is maintained on sucralfate after having had Prilosec for 2 weeks. Is taking oral chemotherapy for breast cancer. Has never had pneumonia. Related Data Home Medications Medication Instructions Recorded Confirmed ibuprofen 200 mg capsule 200 mg PO Q6H PRN 05/17/22 12/09/22 acetaminophen 500 mg tablet 500 mg PO Q6H PRN 06/07/22 12/09/22 (Tylenol Extra Strength) calcium carb-vit D3-minerals 600 1 tab PO BID 07/19/22 12/09/22 mg calcium-400 unit tablet loperamide 2 mg tablet (Imodium 2 mg PO Q6H PRN 10/04/22 12/09/22 A-D) abemaciclib 150 mg tablet 150 mg PO .qd 11/01/22 12/09/22 calcium carbonate 300 mg (750 mg) 300 mg PO BID 12/09/22 12/09/22 chewable tablet (Tums) Previous Rx's Medication Instructions Recorded anastrozole 1 mg tablet 1 mg PO QDAY #90 tabs 07/19/22 sucralfate 100 mg/mL oral 10 ml PO QID PRN #414 mL 01/03/23 suspension (Carafate) Allergies Allergy/AdvReac Type Severity Reaction Status Date / Time No Known Drug Allergies Allergy Verified 01/18/23 18:56 Review of Systems Status of ROS: Reports: 6 or more systems reviewed and unremarkable except as noted in History and below [facility] Medical History Complication of repair of pelvic floor disorder ?N99.89 - Other postprocedural complications and disorders of genitourinary system (ICD-10) Osteoporosis, unspecified ?M81.0 - Age-related osteoporosis without current pathological fracture (ICD-10) Surgical History S/P gilberto ?Z90.49 - Acquired absence of other specified parts of digestive tract (ICD-10) S/P lymph node biopsy ?Z98.890 - Other specified postprocedural states (ICD-10) S/P left mastectomy ?Z90.12 - Acquired absence of left breast and nipple (ICD-10) H/O vein stripping ?Z98.890 - Other specified postprocedural states (ICD-10) H/O: hysterectomy ?Z90.710 - Acquired absence of both cervix and uterus (ICD-10) Family History Mother Breast cancer, Onset Age: 55 Father Colon cancer Paternal Grandmother Skin cancer Social History Narrative: She lives with her in [facility]. She is retired. She is very active. She does not smoke. Her daughter drives her to appointments. Smoking Status: Never smoker Do you use any of these nicotine containing products: None How often do you have a drink containing alcohol: 2-4 times a month Alcohol type: wine How often do you have six or more drinks on one occasion: Never AUDIT-C Alcohol total score: 2 Non-prescribed substance use: denies use service: No Exam Narrative: Exam Narrative: Pleasant. nad. Does not appear to be dyspneic, breathing easily. Cranial nerves 2 through 12. Fully alert. Easily conversant Skin is warm and dry. No peripheral edema. Chest is without pain to palpation. No supraclavicular crepitus. Lungs with some clearing squeaks on auscultation. Breath sounds throughout. Heart in an elevated rate and regular rhythm. Abdomen is soft. Const: Vital Signs, click to edit/add: Vital Signs - 24 hr 01/18/23 17:05 Pulse Oximetry 93 Documenting provider has reviewed patient's vital signs: yes Course Vital Signs Vital signs: Initial Vital Signs Pulse Rate 96 01/18/23 15:15 Respiratory Rate 20 01/18/23 15:15 Blood Pressure 154/101 H 01/18/23 15:15 Blood Pressure Mean 118 H 01/18/23 15:15 Blood Pressure Position Sitting 01/18/23 15:15 Pulse Oximetry 93 01/18/23 15:15 Oxygen Delivery Method Room Air 01/18/23 15:15 Vital Signs Pulse Rate 96 01/18/23 15:15 Respiratory Rate 20 01/18/23 15:15 Blood Pressure 154/101 H 01/18/23 15:15 Pulse Oximetry 93 01/18/23 15:15 Oxygen Delivery Method Room Air 01/18/23 15:15 Temperature 97.6 F 01/18/23 19:07 Pulse Rate 109 H 01/18/23 20:16 Respiratory Rate 01/18/23 15:15 Blood Pressure 136/77 01/18/23 20:16 Pulse Oximetry 91 01/18/23 20:16 Oxygen Delivery Method Room Air 01/18/23 15:15 Medical Decision Making MDM Narrative Medical decision making narrative: Differential does include pulmonary embolus, pneumonia, pleuritis/pneumonitis, heart failure I would anticipate basic labs, including vbgs and D-dimer, chest x-ray. Does not appear to need oxygen support in spite of low oxygen saturation. Chest x-ray reviewed by me has somewhat of a raticular pattern. Radiology over-read as below Chest 2 views. Comparison: PET-CT December 02, 2022. Findings/Impression: Cardiovascular and mediastinum: Heart size and vasculature are normal in caliber and appearance. Lungs and pleural spaces: Persistent scattered bilateral ill-defined reticulonodular infiltrates do not appear significantly changed given differences in technique. Remainder of the lungs and pleural spaces are clear. No pneumothorax. Bones and soft tissues: No significant findings. Dictated by Jose Luis Echevarria MD @ 01/18/2023 6:07:29 PM Mildly elevated D-dimer. I think within range of normal in this patient. With their concerns though can move toward further imaging and evaluation. CT of chest-I did review these images. Radiology over-read as below. IMPRESSION: 1. No pulmonary embolism. 2. Interval worsening of scatter bilateral ill-defined ground-glass nodular infiltrate suggesting a nonspecific pneumonitis. 3. No other acute findings or significant changes. Findings on CT I think are consistent with physical exam findings. Did receive IV fluids in the contrast. I wonder if medications might be related to findings of pneumonitis. See patient discharge plan Lab Data Lab results reviewed: Yes I reviewed the patient's lab results Labs: Lab Results 01/18/23 01/18/23 01/18/23 Range/Units 16:55 17:05 19:03 WBC 4.22 L (4.50-11.00) K/uL RBC 4.32 (4.00-5.20) m/uL Hgb 12.3 (12.0-16.0) gm/dL Hct 38.9 (33.0-51.0) % MCV 90 (80-100) fL MCH 29 (26-34) pg MCHC 32 (32-36) gm/dL RDW Coeff of Thien 13.4 (11.5-15.5) % Plt Count 312 (140-440) K/uL Neut % (Auto) 75.1 H (42.0-72.0) % Lymph % (Auto) 7.8 L (20-44) % [place] % (Auto) 13.3 H (0.0-11.0) % Eos % (Auto) 1.7 (0.0-7.0) % Baso % (Auto) 1.4 (0.0-3.0) % Neut # (Auto) 3.20 (1.7-7.0) K/uL Lymph # (Auto) 0.30 L (0.90-2.90) K/uL [place] # (Auto) 0.60 (0.00-0.90) K/UL Eos # (Auto) 0.10 (0.00-0.50) K/uL Baso # (Auto) 0.10 (0.00-0.30) K/uL Abs Immat Gran (auto) 0.00 (0.00-0.30) K/uL Imm/Tot Granulo (auto) 0.7 % D-Dimer Quant (PE/DVT) 0.56 H (0.00-0.50) ug/ml VBG pH 7.434 H (7.32-7.43) VBG pCO2 49 (40-50) mmHG VBG pO2 33.8 (25-47) mmHG VBG HCO3 33 H (21-28) mmol/L Sodium 137 (135-149) mmol/L Potassium 3.7 (3.6-5.1) mmol/L Chloride 97 (96-114) mmol/L Carbon Dioxide 32 (20-32) mmol/L BUN 12 (7-30) mg/dL Creatinine 1.0 (0.5-1.5) mg/dL Estimated GFR 60 ml/min Glucose 125 H (60-115) mg/dL Calcium 9.5 (8.4-10.6) mg/dL Troponin I < 0.01 L (0.01-0.04) ng/mL C-Reactive Protein 1.8 H (0.5-1.0) mg/dL NT-Pro-B Natriuret Pep 355 pg/mL SARS-CoV-2 (PCR) Negative SARS-CoV-2 (Negative) Influenza Type A (PCR) Negative PCR FLU A (Negative) Influenza Type B (PCR) Negative PCR FLU B (Negative) RSV (PCR) Negative PCR RSV (Negative) Discharge Plan Discharge Clinical Impression: Hypoxia, Pneumonitis Patient Disposition: Home w/ Parent or Adult Condition: Stable Additional Instructions: I would definitely check in with your oncologist and primary care provider. I am wondering if maybe your medications might be related to your diagnoses here today. Your primary care provider may want to pursue further workup for exertional dyspnea. Initiate the prednisone course from [facility] but also check in with your oncologist in particular to verify approval. I suppose if you feel your having to much side effects from the prednisone i.e. too stimulated, can split the dosing to twice a day. Return for worsening persistent shortness of breath, chest pain, fever. Prescriptions: No Action calcium carbonate-vit D3-min 600 mg calcium- 400 unit tablet 1 tab PO BID anastrozole 1 mg tablet 1 mg PO QDAY Qty: 90 3RF loperamide [Imodium A-D] 2 mg tablet 2 mg PO Q6H PRN abemaciclib 150 mg tablet 150 mg PO .qd acetaminophen [Tylenol Extra Strength] 500 mg tablet 500 mg PO Q6H PRN calcium carbonate [Tums] 300 mg (750 mg) tablet,chewable 300 mg PO BID ibuprofen 200 mg capsule 200 mg PO Q6H PRN sucralfate [Carafate] 100 mg/mL suspension 10 ml PO QID PRNQty: 414 2RF Rx Instructions: swish in mouth and swallow; use after food/drink Follow Up/Referrals: Licha Washburn DO [Primary Care Provider] - Stand Alone Forms: [employer] Info Instructions
--- NOTE | 2023-01-18 17:01 | CRLHL7_ITS ---
For Patients: As a result of the Century Cures Act, medical imaging exams and procedure reports are released immediately into your electronic medical record. You may view this report before your referring provider. If you have questions, please contact your health care provider. Indication: Dyspnea. History of breast cancer. Technique: Chest 2 views. Comparison: PET-CT December 02, 2022. Findings/Impression: Cardiovascular and mediastinum: Heart size and vasculature are normal in caliber and appearance. Lungs and pleural spaces: Persistent scattered bilateral ill-defined reticulonodular infiltrates do not appear significantly changed given differences in technique. Remainder of the lungs and pleural spaces are clear. No pneumothorax. Bones and soft tissues: No significant findings. Dictated by Jose Luis Echevarria MD @ 01/18/2023 6:07:29 PM (Electronically Signed)
[2023-01-18 17:14] LABS: Basophils Percent Auto 1.4 % (0.0-3.0); Eosinophils Percent Auto 1.7 % (0.0-7.0); Hematocrit 38.9 % (33.0-51.0); Hemoglobin* 12.3 gm/dL (12.0-16.0); Immature Granulocytes Pct Auto 0.7 %; Lymphocytes Percent Auto 7.8 % (20-44); Mean Corpuscular HGB Conc 32 gm/dL (32-36); Mean Corpuscular Hemoglobin 29 pg (26-34); Mean Corpuscular Volume 90 fL (80-100); Monocytes Percent Auto 13.3 % (0.0-11.0); Neutrophils Percent Auto 75.1 % (42.0-72.0); Platelet Count* 312 K/uL (140-440); RDW Coefficient of Variation % 13.4 % (11.5-15.5); Red Blood Count 4.32 m/uL (4.00-5.20); White Blood Count* 4.22 K/uL (4.50-11.00)
[2023-01-18 17:21] LABS: Slide Review Reflex No
[2023-01-18 17:33] LABS: D Dimer Quantitative* 0.56 ug/ml (0.00-0.50)
[2023-01-18 18:07] LABS: PCR FLU A Negative PCR FLU A (Negative); PCR FLU B Negative PCR FLU B (Negative); PCR RSV Negative PCR RSV (Negative)
[2023-01-18 18:08] LABS: Potassium* 3.7 mmol/L (3.6-5.1); Sodium* 137 mmol/L (135-149)
[2023-01-18 18:09] LABS: Blood Urea Nitrogen* 12 mg/dL (7-30); C Reactive Protein* 1.8 mg/dL (0.5-1.0); Calcium* 9.5 mg/dL (8.4-10.6); Carbon Dioxide* 32 mmol/L (20-32); Chloride* 97 mmol/L (96-114); Estimated Glomerular Filt Rate 60 ml/min; Glucose* 125 mg/dL (60-115); NT Pro B Type NatriureticPept* 355 pg/mL; Troponin I* < 0.01 ng/mL (0.01-0.04)
--- NOTE | 2023-01-18 18:33 | CRLHL7_ITS ---
For Patients: As a result of the Century Cures Act, medical imaging exams and procedure reports are released immediately into your electronic medical record. You may view this report before your referring provider. If you have questions, please contact your health care provider. INDICATION: Hypoxia and tachycardia. History of breast cancer. TECHNIQUE: CT chest PE was acquired with 95 cc Isovue 370 IV contrast. COMPARISON: None. FINDINGS: Heart and vasculature: Contrast opacification of the pulmonary arterial tree is adequate. No sign of pulmonary embolism. Heart size is normal. Thoracic aorta and pulmonary artery are normal in caliber. Lungs and pleura: Scattered bilateral patchy ground-glass infiltrates in both lungs. No lobar consolidations. No pleural effusions, pleural thickening, or pneumothorax. Lymph nodes/mediastinum: No mediastinal, hilar, or axillary adenopathy. Chest wall: No masses. Upper abdomen: No acute or significant findings. Bones: Unremarkable for age. IMPRESSION: 1. No pulmonary embolism. 2. Interval worsening of scatter bilateral ill-defined ground-glass nodular infiltrate suggesting a nonspecific pneumonitis. 3. No other acute findings or significant changes. Please note that all CT scans at this facility use dose modulation, iterative reconstruction, and/or weight-based dosing when appropriate to reduce radiation dose to as low as reasonably achievable. Dictated by Jose Luis Echevarria MD @ 01/18/2023 8:13:18 PM (Electronically Signed)
[2023-01-18 18:48] LABS: SARS PCR* Negative SARS-CoV-2 (Negative)
[2023-01-18] MEDS: IPRAT-ALBUT 0.5-2.5 MG/3 ML NEB 1 NEB IH (18:56)
[2023-01-18 19:11] LABS: HCO3 VBG 33 mmol/L (21-28); PCO2 VBG 49 mmHG (40-50); PO2 VBG 33.8 mmHG (25-47); pH VBG 7.434 (7.32-7.43)
[2023-01-18] MEDS: 0.9 % SODIUM CHLORIDE 1000 ml 1,000 ML IV (19:23)
== END 2023-01-18 21:00 | disposition home or self-care (01) ==
PROVIDERS: Emergency Provider Family Medicine; PCP Family Medicine
DX: R09.02 Hypoxemia (principal); J18.9 Pneumonia, unspecified organism
CPT/HCPCS: 36415; 71046; 71260; 80048; 82803; 83880; 84484; 85025; 85379; 86140; 87631; 94640; 99284; J7030; Q9967

== ENCOUNTER 2023-05-19 13:30 | Outpatient (RCR) | payer MEDICARE, BC, SELFPAY ==
--- NOTE | 2022-12-14 14:59 | URNOTE ---
Request received for authorization for Zoledronic Acid (Zometa) ([id number]). Prior authorization is not required as services are based on medical necessity and follow Medicare guidelines.
--- NOTE | 2022-12-28 10:47 | ONC.NURNOTE ---
Addendum entered by Allie Vaughn RN 12/31/22 13:15: Pt cancelled lab appt today as her GERD is still too uncomfortable to drive here. She has been taking Prilosec OTC and Pepcid QAM x 3 days. She is using occasional Tums for breakthrough heartburn throughout the day. She says she does not notice a difference since starting Prilosec but feels there is some improvement with eating small amounts frequently to keep her stomach from being empty. Recommended pt call PCP today to be seen early next week and to continue anti-GERD regimen through weekend. Pt rescheduled lab from 01/03. Addendum entered by Allie Vaughn RN 12/28/22 11:29: Pt returned call; she has not been feeling well since Pet CT on 12/02, saying the modified diet and being NPO x 6 hrs flared her GERD. She has been taking Tums the last few weeks and is now on Day 5 of Pepcid. Pt is taking Pepcid with an empty stomach 1st thing in the morning with a glass of water and then waiting x 30 min to eat. Encouraged her to add in Tums for breakthrough in addition to Pepcid, waiting 2 hrs after morning dose. Recommended pt try a PPI OTC like Prilosec or Nexium generics if symptoms not significantly improve in next day or so, to complete 14 day course and bridge off of it with Pepcid/Tums to allow for more thorough healing of GERD flare. Pt rescheduled to come in for labs Sunday 12/31; Nsg to f/u GERD symptoms then. Original Note: Pt did not show up for lab appt yesterday; Lm to reschedule.
[2023-01-03 14:30] VITALS: BP 131/80; PULSE 125; RESP 24; TEMP 36.7; O2SAT 92
[2023-01-03 14:32] VITALS: BP 116/79; PULSE 128
[2023-01-03 14:56] LABS: Basophils Absolute Auto 0.03 K/uL (0.00-0.30); Basophils Percent Auto 0.6 % (0.0-3.0); Eosinophils Absolute Auto 0.07 K/uL (0.00-0.50); Eosinophils Percent Auto 1.4 % (0.0-7.0); Hematocrit 37.3 % (33.0-51.0); Hemoglobin* 12.2 gm/dL (12.0-16.0); Immature Granulocytes Abs Auto 0.02 K/uL (0.00-0.30); Immature Granulocytes Pct Auto 0.4 %; Lymphocytes Percent Auto 3.3 % (20-44); Mean Corpuscular HGB Conc 33 gm/dL (32-36); Mean Corpuscular Hemoglobin 30 pg (26-34); Mean Corpuscular Volume 91 fL (80-100); Monocytes Percent Auto 7.8 % (0.0-11.0); Neutrophils Percent Auto 86.5 % (42.0-72.0); Platelet Count* 315 K/uL (140-440); RDW Coefficient of Variation % 12.8 % (11.5-15.5); Red Blood Count 4.11 m/uL (4.00-5.20); White Blood Count* 4.87 K/uL (4.50-11.00)
[2023-01-03 15:05] LABS: Albumin* 3.8 g/dL (3.3-5.0); Chloride* 96 mmol/L (96-114); Sodium* 134 mmol/L (135-149)
[2023-01-03 15:06] LABS: Potassium* 4.1 mmol/L (3.6-5.1)
[2023-01-03 15:08] LABS: Alanine Aminotransferase* 40 U/L (4-35); Alkaline Phosphatase* 106 U/L (40-150); Aspartate Amino Transferase* 33 U/L (12-35); Bilirubin Total* 0.5 mg/dL (0.1-1.5); Blood Urea Nitrogen* 15 mg/dL (7-30); Carbon Dioxide* 29 mmol/L (20-32); Creatinine* 1.2 mg/dL (0.5-1.5); Estimated Glomerular Filt Rate 48 ml/min; Glucose* 143 mg/dL (60-115); Total Protein* 7.7 g/dL (6.0-8.3)
[2023-01-03 15:09] LABS: Calcium* 9.6 mg/dL (8.4-10.6)
[2023-01-03 15:14] LABS: Slide Review Reflex No
--- NOTE | 2023-01-03 15:22 | ONC.NURNOTE ---
Pt presented to [facility] today ~ 1420 for monthly labs. She is short of breath, ashen and shaky. Pt had not come in for labs last week x 3 appts d/t not feeling well; see previous notes. See VS in EMR; Afeb but has shaking chills, especially hands and and chin. Her epigastric pain is significantly worse today. She is drinking ~ 60 oz water/day plus 2-3 8oz bowls of soup and occasional banana and crackers. Denies nausea; is passing ~ daily soft, light brown stool. Tach 120's-150's, Sats 88%-92% and RR ~24 with increased SOB with activity. CBC/CMP drawn. Recommended pt be seen in ED. Pt agreeable to this plan. Taken via nursing via wheelchair ~1515.
--- NOTE | 2023-01-19 14:13 | ONC.NURNOTE ---
Addendum entered by Allie Vaughn RN 01/19/23 16:32: Per phone call with Noa Baptiste PA-C, images from Pet CT and yesterday's CTA reviewed with Dr. Mendez; does not look like radiation pneumonitis. No Rad Tx f/u indicated or scheduled at this time. Addendum entered by Allie Vaughn RN 01/19/23 14:51: Notified Radiation Oncology; Angela RN will review with Noa Baptiste and Dr. Mendez. They anticipate bringing in the patient for assessment and will update us when appt is scheduled. Original Note: Pt called updating us that her EGD scheduled for yesterday was cancelled d/t hypoxia on arrival assessment. Per EMR, 02 Sats 88-93%. Pt seen in ED; provider note not yet complete. CTA completed; results as follows: CTA 01/18/23 IMPRESSION: 1. No pulmonary embolism. 2. Interval worsening of scatter bilateral ill-defined ground-glass nodular infiltrate suggesting a nonspecific pneumonitis. 3. No other acute findings or significant changes. Pt discharged from ED with Prednisone 20 mg BID x 5 days; began this morning. Pt has noticeable SOB on phone leggett; she notes she does not have SOB at rest but with walking across the room even, is very winded. She does not feel the SOB is worse than yesterday. Pt's currently scheduled appts: 01/21 PCP appt to f/u gastritis; Dr. Washburn @ [facility]. [facility] LM for Dr. Washburn updating situation, asking to assess need for home O2. 01/[address] ; previously scheduled as 6 wk f/u from Pet CT 12/02/[address] Corona's recommendation: Pet CT 12/02/22 IMPRESSION : 1. Left upper lobe opacities favored to represent post radiation therapy changes. Infection/inflammation is another consideration. 2. Lingular subpleural nodular opacity with mild uptake could be due to post therapy changes although underlying lesion is not excluded. Recommend continued surveillance with chest CT. 3. Additional pulmonary nodule seen on prior exam are stable with uptake similar to background. 4. Otherwise no new sites of abnormal uptake in the neck, abdomen or pelvis. Th01/27 Labs/Dr. Mcfarland ; previously scheduled f/u to reassess GERD/when to restart Verzenio. Verzenio on hold since 01/03/23. [facility] reviewed with Amalia Dutton APRN; as pt has begun treatment for pneumonitis with oral steroids, plan to review with Dr. Bartolo Strickland 01/20 to review appt schedule, if Chest CT should be rescheduled and if 01/27 appt needs to be adjusted.
[2023-01-27 13:58] LABS: Basophils Absolute Auto 0.03 K/uL (0.00-0.30); Basophils Percent Auto 0.5 % (0.0-3.0); Eosinophils Absolute Auto 0.11 K/uL (0.00-0.50); Eosinophils Percent Auto 1.8 % (0.0-7.0); Hematocrit 44.3 % (33.0-51.0); Hemoglobin* 14.1 gm/dL (12.0-16.0); Immature Granulocytes Abs Auto 0.15 K/uL (0.00-0.30); Immature Granulocytes Pct Auto 2.4 %; Lymphocytes Percent Auto 7.9 % (20-44); Mean Corpuscular HGB Conc 32 gm/dL (32-36); Mean Corpuscular Hemoglobin 29 pg (26-34); Mean Corpuscular Volume 90 fL (80-100); Monocytes Percent Auto 12.9 % (0.0-11.0); Neutrophils Percent Auto 74.5 % (42.0-72.0); Platelet Count* 278 K/uL (140-440); RDW Coefficient of Variation % 13.9 % (11.5-15.5); Red Blood Count 4.94 m/uL (4.00-5.20); White Blood Count* 6.21 K/uL (4.50-11.00)
[2023-01-27 14:14] LABS: Albumin* 3.8 g/dL (3.3-5.0); Chloride* 100 mmol/L (96-114)
[2023-01-27 14:15] LABS: Potassium* 3.6 mmol/L (3.6-5.1); Sodium* 138 mmol/L (135-149)
[2023-01-27 14:17] LABS: Aspartate Amino Transferase* 24 U/L (12-35); Bilirubin Total* 0.4 mg/dL (0.1-1.5); Blood Urea Nitrogen* 19 mg/dL (7-30); Carbon Dioxide* 30 mmol/L (20-32); Estimated Glomerular Filt Rate 60 ml/min
[2023-01-27 14:18] LABS: Alanine Aminotransferase* 28 U/L (4-35); Alkaline Phosphatase* 93 U/L (40-150); Calcium* 9.2 mg/dL (8.4-10.6); Glucose* 112 mg/dL (60-115)
[2023-01-27 15:05] LABS: Slide Review Reflex No
[2023-02-15 14:19] LABS: Basophils Absolute Auto 0.02 K/uL (0.00-0.30); Basophils Percent Auto 0.3 % (0.0-3.0); Eosinophils Percent Auto 1.7 % (0.0-7.0); Hematocrit 44.2 % (33.0-51.0); Hemoglobin* 14.3 gm/dL (12.0-16.0); Immature Granulocytes Pct Auto 1.7 %; Lymphocytes Percent Auto 10.8 % (20-44); Mean Corpuscular HGB Conc 32 gm/dL (32-36); Mean Corpuscular Hemoglobin 29 pg (26-34); Mean Corpuscular Volume 88 fL (80-100); Monocytes Percent Auto 10.8 % (0.0-11.0); Neutrophils Percent Auto 74.7 % (42.0-72.0); Platelet Count* 190 K/uL (140-440); RDW Coefficient of Variation % 14.3 % (11.5-15.5); Red Blood Count 5.02 m/uL (4.00-5.20); White Blood Count* 5.74 K/uL (4.50-11.00)
[2023-02-15 14:26] LABS: Albumin* 3.8 g/dL (3.3-5.0); Chloride* 106 mmol/L (96-114); Slide Review Reflex No; Sodium* 139 mmol/L (135-149)
[2023-02-15 14:27] LABS: Potassium* 3.7 mmol/L (3.6-5.1)
[2023-02-15 14:29] LABS: Alanine Aminotransferase* 19 U/L (4-35); Alkaline Phosphatase* 84 U/L (40-150); Aspartate Amino Transferase* 22 U/L (12-35); Bilirubin Total* 0.3 mg/dL (0.1-1.5); Blood Urea Nitrogen* 22 mg/dL (7-30); Carbon Dioxide* 27 mmol/L (20-32); Estimated Glomerular Filt Rate 60 ml/min; Glucose* 117 mg/dL (60-115); Total Protein* 6.9 g/dL (6.0-8.3)
[2023-02-15 14:30] LABS: Calcium* 9.2 mg/dL (8.4-10.6)
[2023-02-17] MEDS: ZOLEDRONIC ACID 4 MG in 0.9 % SODIUM CHLORIDE 100 ml 100 ML 420 MG IVPB (14:28)
[2023-05-19 12:59] LABS: Basophils Absolute Auto 0.04 K/uL (0.00-0.30); Basophils Percent Auto 0.7 % (0.0-3.0); Eosinophils Absolute Auto 0.03 K/uL (0.00-0.50); Eosinophils Percent Auto 0.5 % (0.0-7.0); Hematocrit 46.5 % (33.0-51.0); Hemoglobin* 14.9 gm/dL (12.0-16.0); Immature Granulocytes Abs Auto 0.01 K/uL (0.00-0.30); Immature Granulocytes Pct Auto 0.2 %; Lymphocytes Percent Auto 18.5 % (20-44); Mean Corpuscular HGB Conc 32 gm/dL (32-36); Mean Corpuscular Hemoglobin 27 pg (26-34); Mean Corpuscular Volume 86 fL (80-100); Monocytes Percent Auto 7.1 % (0.0-11.0); Platelet Count* 180 K/uL (140-440); RDW Coefficient of Variation % 14.2 % (11.5-15.5); Red Blood Count 5.44 m/uL (4.00-5.20); White Blood Count* 5.78 K/uL (4.50-11.00)
[2023-05-19 13:05] LABS: Slide Review Reflex No
[2023-05-19 13:11] LABS: Albumin* 4.3 g/dL (3.3-5.0)
[2023-05-19 13:12] LABS: Chloride* 103 mmol/L (96-114); Potassium* 4.4 mmol/L (3.6-5.1); Sodium* 140 mmol/L (135-149)
[2023-05-19 13:14] LABS: Bilirubin Total* 0.3 mg/dL (0.1-1.5); Creatinine* 1.1 mg/dL (0.5-1.5); Estimated Glomerular Filt Rate 53 ml/min
[2023-05-19 13:15] LABS: Alanine Aminotransferase* 18 U/L (4-35); Alkaline Phosphatase* 86 U/L (40-150); Anion Gap 7 mEq/L (7-15); Aspartate Amino Transferase* 34 U/L (12-35); Blood Urea Nitrogen* 20 mg/dL (7-30); Calcium* 9.5 mg/dL (8.4-10.6); Carbon Dioxide* 30 mmol/L (20-32); Glucose* 101 mg/dL (60-115); Total Protein* 7.6 g/dL (6.0-8.3)
== END 2023-06-07 23:59 | disposition home or self-care (01) ==
LOC: CCIC 13:30
PROVIDERS: Physician Assistant; PCP Family Medicine; Referring Provider Family Medicine; Visit Provider Internal Medicine Hematology & Oncology
DX: C50.912 Malignant neoplasm of unspecified site of left female breast (principal); Z17.0 Estrogen receptor positive status [ER+]; Z79.811 Long term (current) use of aromatase inhibitors; R91.8 Other nonspecific abnormal finding of lung field; M85.80 Other specified disorders of bone density and structure, unspecified site; J44.9 Chronic obstructive pulmonary disease, unspecified
CPT/HCPCS: 36415; 71260; 80053; 85025; 96365; 99212; 99214; 99215; J3489; Q9967

== ENCOUNTER 2023-09-29 14:37 | Outpatient (CLI) | payer MEDICARE, BC, SELFPAY ==
--- NOTE | 2023-09-29 15:00 | CT_ITS ---
Patient: ANN-MARIE HUERTAS Facility:?[facility] Patient ID:?[id number] Site Patient ID:?[id number]. Site :?1950 Study:?CT-Chest W/ISOVUE 370 75CC-09/29/2023 3:08:59 PM Ordering Physician:ANGELICA Final Report: Indication: Monitor nodules, recently treated early stage breast cancer, Other nonspecific abnormal finding of lung field Technique: CT Chest W/ISOVUE 370 75CC Please note that all CT scans at this facility use dose modulation, iterative reconstruction, and/or weight-based dosing when appropriate to reduce radiation dose to as low as reasonably achievable. Comparison: 02/15/2023 Findings: Postop changes left mastectomy. Stable incidental cystic structure adjacent to the right kidney. Unchanged cyst within the posterior right hepatic lobe and within the left hepatic lobe. Spleen is nonenlarged. No adrenal lesion. Atherosclerotic changes are present. No hiatal hernia. No enlarged mediastinal or hilar lymph nodes. Visualized thyroid is normal. No abnormal axillary lymph nodes. There is no fracture. No suspicious osseous lesion. Emphysematous changes with chronic areas of scarring including biapical pleural-parenchymal scarring, similar to the prior study. Stable left upper lobe nodule measuring 4 millimeters, 10/27. Left lower lobe nodule measuring 5.4 millimeter, similar to the prior study, 34. Also similar is a nodule within the left lower lobe measuring 1.2 cm. Stable tiny nodule within the right lower lobe, . Additional small nodules within the right perihilar right lower lobe are also similar. Stable nodular density within the posteromedial right lung apex. Impression: Stable bilateral pulmonary nodules. Please note that all CT scans at this facility use dose modulation, iterative reconstruction, and/or weight-based dosing when appropriate to reduce radiation dose to as low as reasonably achievable. Dictated by Anuel Charles MD @ 09/30/2023 12:15:38 PM Signed by:?Anuel Charles MD @09/30/2023 12:15:38 PM (Electronic Signature)
== END 2023-09-29 14:38 | disposition home or self-care (01) ==
LOC: CT 14:39
PROVIDERS: PCP Family Medicine; Visit Provider Physician Assistant
DX: R91.8 Other nonspecific abnormal finding of lung field (principal)
CPT/HCPCS: 71260; Q9967

== ENCOUNTER 2023-12-15 13:30 | Outpatient (RCR) | payer MEDICARE, BC, SELFPAY ==
[2023-09-15 12:37] LABS: Calcium* 9.6 mg/dL (8.4-10.6); Creatinine* 1.1 mg/dL (0.5-1.5); Est. Creatinine Clearance* 39.33; Estimated Glomerular Filt Rate 53 ml/min
[2023-09-15] MEDS: ZOLEDRONIC ACID 4 MG in 0.9 % SODIUM CHLORIDE 100 ml 100 ML 420 MG IVPB (14:01)
--- NOTE | 2023-10-03 15:44 | ONC.NURNOTE ---
CT scan from 09/29/23 reviewed by Tri Aguilar PA-C, per Tri Aguilar PA-C lung nodules are stable. [facility].
== END 2024-03-13 23:59 | disposition home or self-care (01) ==
LOC: CCIC 13:30
PROVIDERS: Internal Medicine Hematology & Oncology; PCP Family Medicine; Referring Provider Family Medicine; Visit Provider Physician Assistant
DX: C50.912 Malignant neoplasm of unspecified site of left female breast (principal); Z17.0 Estrogen receptor positive status [ER+]; Z79.811 Long term (current) use of aromatase inhibitors; M85.80 Other specified disorders of bone density and structure, unspecified site; R91.8 Other nonspecific abnormal finding of lung field; Z90.12 Acquired absence of left breast and nipple
CPT/HCPCS: 36415; 82310; 82565; 96374; 99214; 99215; G0463; J3489

== ENCOUNTER 2024-03-16 13:12 | Outpatient (CLI) | payer MEDICARE, BC, SELFPAY ==
[2024-03-16 13:56] LABS: Creatinine* 1.1 mg/dL (0.5-1.5); Estimated Glomerular Filt Rate 53 ml/min
--- NOTE | 2024-03-16 14:00 | CRLHL7_ITS ---
For Patients: As a result of the Century Cures Act, medical imaging exams and procedure reports are released immediately into your electronic medical record. You may view this report before your referring provider. If you have questions, please contact your health care provider. INDICATION: .FOLLOWUP BREAST CA TECHNIQUE: CT chest was acquired with 75 cc Isovue 370 IV contrast. COMPARISON: PET CT November 2022. FINDINGS: Lungs and Airways: Biapical subpleural fibrosis. Left upper lobe and lingular anterior subpleural reticulations likely sequela SP RT change. Medial left lower lobe basilar segment 12 millimeter indeterminate pulmonary nodule. Similar in size compared to the 2022 exam given changes in technique. Stable superior segment left lower lobe 6 millimeter indeterminate pulmonary nodule. A few additional scattered sub 6 millimeter indeterminate pulmonary nodules, stable. A few additional scattered 1-3 millimeter indeterminate pulmonary nodules, not definitively seen on the prior exam, however likely obscured secondary to motion. No discrete new suspicious pulmonary nodules. No endoluminal lesion. Heart and Mediastinum: The visualized portions of the thyroid are normal. No axillary or supraclavicular lymphadenopathy. No mediastinal, hilar or retrocrural lymphadenopathy. Normal heart size. Normal caliber aorta. Pleura: The pleural spaces are normal. Abdomen: Stable right hepatic lobe cyst. Subcentimeter hypodensities in left hepatic lobe are too small to characterize however are similar compared to the previous exam. Colonic diverticulosis. Bones and soft tissues: Left mastectomy. Similar appearance. Thoracic spondylosis. IMPRESSION: No discrete worsening disease within the chest. Please note that all CT scans at this facility use dose modulation, iterative reconstruction, and/or weight-based dosing when appropriate to reduce radiation dose to as low as reasonably achievable. Dictated by Anuel Holly MD @ 03/17/2024 9:09:48 PM (Electronically Signed)
== END 2024-03-16 13:13 | disposition home or self-care (01) ==
LOC: CT 13:15
PROVIDERS: PCP Family Medicine; Visit Provider Physician Assistant
DX: R91.8 Other nonspecific abnormal finding of lung field (principal); C50.919 Malignant neoplasm of unspecified site of unspecified female breast
CPT/HCPCS: 36415; 71260; 82565; Q9967

== ENCOUNTER 2024-04-05 13:20 | Outpatient (CLI) | payer MEDICARE, BC, SELFPAY ==
--- NOTE | 2024-04-05 16:00 | PE_ITS ---
[facility] [address] [facility] [address] Phone:?[phone] Fax:?[phone] Referring Physician Information: Magaly Aguilar PA-C [address] [facility] [address] Phone:?[phone] Fax:?[phone] Patient:Tara Israel D.O.B:?1950 Sex:?Female Phone:?[phone] [facility] MRN:?[id number] Exam Date:?04/05/2024 EXAM: PET/CT SCAN MID-ORBITS TO PROXIMAL THIGHS CLINICAL INFORMATION: Breast cancer. TECHNICAL INFORMATION: Spiral acquisition of data was obtained from the mid orbits to the proximal thighs with reconstruction of 3.75 mm thick images at 3.[address] data was used for attenuation correction. PET scanning was performed through the same anatomic range 52 minutes following administration of 13.05 mCi of 18-FDG delivered intravenously. The patient's glucose at the time of the injection was 106 mg/dL. PET, CT and PET/CT fusion images are interpreted using a computer viewing workstation. SUV max liver 3.08; BMI normalization method. COMPARISON: Chest CT 03/17/2024 [facility]. PET/CT 12/02/2022 INTERPRETATION: Head and Neck: Physiologic intracranial uptake. No adenopathy or mass. Chest: Bilateral apical subpleural fibrosis and scattered reticular opacities bilaterally most notably in the anterior left upper lobe without FDG avidity. Previous 14 mm lingular nodular opacity without FDG avidity identified on prior PET/CT is absent on current study. 10 mm nodule medial left lower lobe image 149, non-FDG avid, SUV max 1.49, without significant change since 12/02/2022 PET/CT. No new lung lesions. No pathologic adenopathy. Abdomen, Pelvis and Proximal Thighs: No liver lesion. Gallbladder is absent. Pancreas, adrenal glands spleen are unremarkable. Stable probable right renal cyst. No FDG avid osseous lesions are identified. Postop left mastectomy change without FDG avidity. CONCLUSION: 1. Postop left mastectomy change. Pulmonary reticular opacities and 10 mm medial left lower lobe nodule without FDG avidity, SUV max 1.49. No new FDG avid metastatic lesions are identified. Electronically signed on 04/09/2024 11:22:00 AM by Mejia Blackman M.D.
== END 2024-04-05 13:21 | disposition home or self-care (01) ==
LOC: RAD 13:21
PROVIDERS: PCP Family Medicine; Visit Provider Physician Assistant
DX: C50.512 Malignant neoplasm of lower-outer quadrant of left female breast (principal); R91.8 Other nonspecific abnormal finding of lung field; J44.9 Chronic obstructive pulmonary disease, unspecified
CPT/HCPCS: 78815; A9552

== ENCOUNTER 2024-04-12 14:10 | Outpatient (RCR) | payer MEDICARE, BC, SELFPAY ==
--- NOTE | 2024-03-20 08:14 | URNOTE ---
Prior auth is not required for Minoometa ([id number]). Services are based on medical necessity and follow medicare guidelines.
[2024-03-22 13:46] LABS: Calcium* 9.9 mg/dL (8.4-10.6); Creatinine* 1.2 mg/dL (0.5-1.5); Estimated Glomerular Filt Rate 48 ml/min
[2024-03-22 15:15] VITALS: BP 170/71
--- NOTE | 2024-03-23 09:03 | A.ONCPRONO_ITS ---
[facility] Provider Note Clinic Note Narrative: zometa Ms. Israel is receiving zometa every 6 months x 6 doses, 3 years total per most recent office visit note by Magaly Aguilar PA-C 03/22/24. New zometa treatment plan dosing. Creatinine clearance per MD Calc, using actual body weight. female age 73 weight 63.4 kg 03/22/24 height 165.1 cm Creatinine 1.2 estimated creatinine clearance 42 ml/min. Zometa treatment plan resubmitted starting with cycle 3 of 6. Dose 3.3mg
[2024-03-23 09:23] VITALS: BP 187/82; PULSE 80; RESP 17; TEMP 36.7; O2SAT 96
[2024-03-23 09:47] VITALS: BP 155/77; PULSE 65; RESP 16
[2024-03-23] MEDS: ZOLEDRONIC ACID 3.3 MG in 0.9 % SODIUM CHLORIDE 100 ml 100 ML 400 MG IVPB (10:10)
--- NOTE | 2024-03-27 12:25 | ONC.NURNOTE ---
PET scan order faxed to [facility] medical with supporting documentation. Scheduled for 04/05/24 at 1600 here in [place]. Pt aware.
== END 2024-09-18 23:59 | disposition home or self-care (01) ==
LOC: CCIC 14:10
PROVIDERS: PCP Family Medicine; Referring Provider Family Medicine; Visit Provider Physician Assistant
DX: C50.912 Malignant neoplasm of unspecified site of left female breast (principal); Z17.0 Estrogen receptor positive status [ER+]; R91.8 Other nonspecific abnormal finding of lung field; J44.9 Chronic obstructive pulmonary disease, unspecified; M85.80 Other specified disorders of bone density and structure, unspecified site; Z90.12 Acquired absence of left breast and nipple; Z79.811 Long term (current) use of aromatase inhibitors
CPT/HCPCS: 36415; 82310; 82565; 96374; 99214; 99215; G0463; J3489

== ENCOUNTER 2024-07-12 13:55 | Outpatient (CLI) | payer MEDICARE, BC, SELFPAY ==
--- NOTE | 2024-07-12 14:30 | CRLHL7_ITS ---
For Patients: As a result of the Century Cures Act, medical imaging exams and procedure reports are released immediately into your electronic medical record. You may view this report before your referring provider. If you have questions, please contact your health care provider. XR DXA Bone Mineral Density (BMD) Reason for exam: Monitoring bone density ??? on anastrozole and aromatase inhibitors. Current height (in): 66. Weight (lb): 142. Menopause age: 50. Ethnicity: White. 1. Have you had a previous hip or vertebral fracture? No. 2. Have you had any fractures during your adult life which did not result from significant trauma (e.g., auto accident)? No. 3. Did either of your parents have a hip fracture? Yes. 4. Do you smoke? No. 5. Have you ever taken Glucocorticoids? No. 6. Do you have rheumatoid arthritis? No. 7. Do you have secondary osteoporosis? No. 8. Do you drink 3 or more alcoholic drinks per day? No. 9. Are you being treated for osteoporosis? No. 10. Have you ever taken any of the following medications: Actonel, Evista, Fosamax, Miacalcin, Reclast, Boniva, Forteo, HRT (i.e. estrogen/hormone therapy), Protelos, Prolia, Vitamin D, Calcium, other ??? please specify. ANSWER: Yes, vitamin D, calcium. 11. Do you have any of the following medical conditions: Anorexia or bulimia, asthma or emphysema, end stage renal disease, hyperparathyroidism, any seizure disorders, cancer, inflammatory bowel diseases, hysterectomy, other ??? please specify. ANSWER: Yes, cancer, hysterectomy. 12. What was your maximum height (inches)? 66. 13. Do you perform weight bearing exercise regularly? No. 14. Do you regularly consume dairy products? Yes. 15. Do you drink caffeinated beverages? Yes. 16. At what age did your period start? 12. 17. Are you premenopausal? No. 18. How many full-term pregnancies have you had? 2. 19. Have you ever missed your period for more than 6 months in a row (not including or menopause)? No. TECHNIQUE: Bone mineral density study was performed using the [employer]. FINDINGS: The results of the study expressed as bone mineral density (BMD) are as follows: Lumbar spine L2 to L4: BMD: 0.955 g/cm2. T-score: -1.1. Z-score: 1.8. Right neck: BMD: 0.707 g/cm2. T-score: -1.3. Z-score: 0.8. Right total: BMD: 0.771 g/cm2. T-score: -1.4. Z-score: 0.3. Left neck: BMD: 0.634 g/cm2. T-score: -1.9. Z-score: 0.1. Left total: BMD: 0.756 g/cm2. T-score: -1.5. Z-score: 0.2. IMPRESSION: Osteopenia. *Comparison exams done prior to 12/2019 were performed on different unit, [facility]. COMPARISON: Compared with scan of 06/30/2022, the bone mineral density has increased by 3.9 percent at the spine and increased by 1.3 percent at the right hip and increased 0.6 percent at the left hip. FRAX RIGHT HIP: 10-year Fracture Risk Major Osteoporotic Fracture: 16 percent Hip Fracture: 6.8 percent Reported Risk Factors: [place] () Neck BMD=0.707, BMI=22.9. parental fracture LEFT HIP: 10-year Fracture Risk Major Osteoporotic Fracture: 21 percent Hip Fracture: 11 percent Reported Risk Factors: [place] () Neck BMD=0.634, BMI=22.9. parental fracture Anuel Charles M.D. Diagnostic Radiologist [email or web address] NOMAN/ailyn / bM/Dictated by: Anuel Charles MD @ 07/12/2024 3:22:00 PM (Electronically Signed)
== END 2024-07-12 13:56 | disposition home or self-care (01) ==
LOC: RAD 13:58
PROVIDERS: PCP Family Medicine; Visit Provider Physician Assistant
DX: Z79.811 Long term (current) use of aromatase inhibitors (principal); M85.88 Other specified disorders of bone density and structure, other site
CPT/HCPCS: 77080

== ENCOUNTER 2024-10-31 13:17 | Outpatient (CLI) | payer MEDICARE, BC, SELFPAY ==
[2024-10-31 13:53] LABS: Creatinine* 1.2 mg/dL (0.5-1.5); Estimated Glomerular Filt Rate 48 ml/min
--- NOTE | 2024-10-31 14:00 | CRLHL7_ITS ---
For Patients: As a result of the Century Cures Act, medical imaging exams and procedure reports are released immediately into your electronic medical record. You may view this report before your referring provider. If you have questions, please contact your health care provider. Indication: MALIGNANT NEOPLASM OF BREAST Technique: CT Chest W/ 75CC ISOVUE 370 intravenous contrast Please note that all CT scans at this facility use dose modulation, iterative reconstruction, and/or weight-based dosing when appropriate to reduce radiation dose to as low as reasonably achievable. Comparison: 03/16/2024 Findings: Bilateral pulmonary nodules are unchanged with the largest located within the left lower lobe, measuring 1.2 cm. Postop changes left mastectomy. Bilateral areas of scarring. Similar changes in both lung apices. No infiltrate or edema. No effusion or pneumothorax. No adenopathy. No fracture. No intrinsic osseous lesion demonstrate atherosclerotic changes. Simple cysts within the liver. Stable cyst arising from the right kidney. No fracture. Impression: Stable exam. Unchanged bilateral pulmonary nodules. Please note that all CT scans at this facility use dose modulation, iterative reconstruction, and/or weight-based dosing when appropriate to reduce radiation dose to as low as reasonably achievable. Dictated by Anuel Charles MD @ 10/31/2024 2:26:08 PM (Electronically Signed)
== END 2024-10-31 13:18 | disposition home or self-care (01) ==
LOC: CT 13:18
PROVIDERS: PCP Family Medicine; Visit Provider Physician Assistant
DX: C50.919 Malignant neoplasm of unspecified site of unspecified female breast (principal); R91.8 Other nonspecific abnormal finding of lung field
CPT/HCPCS: 36415; 71260; 82565; Q9967

== ENCOUNTER 2024-12-18 09:09 | Outpatient (CLI) | payer MEDICARE, BC, SELFPAY ==
--- NOTE | 2024-12-18 09:15 | CRLHL7_ITS ---
For Patients: As a result of the Cures Act, medical imaging exams and procedure reports are released immediately into your electronic medical record. You may view this report before your referring provider. If you have questions, please contact your health care provider. Indication: LOCALIZED SWELLING, MASS, AND LUMP Technique: Grayscale and color Doppler ultrasound of the left chest soft tissues performed. Comparison: CT chest 10/31/2024 Findings: Simple cyst is present within the subcutaneous tissues which measures 7 x 4 x 7 millimeters. No shadowing lesion or abnormal vascularity. Impression: Benign cystic area within the left chest subcutaneous tissues adjacent to the scar which measures 7 millimeters. No suspicious findings. Dictated by Anuel Charles MD @ 12/18/2024 9:56:49 AM (Electronically Signed)
== END 2024-12-18 09:10 | disposition home or self-care (01) ==
LOC: US 09:10
PROVIDERS: PCP Family Medicine; Visit Provider Internal Medicine Hematology & Oncology
DX: R22.2 Localized swelling, mass and lump, trunk (principal); R91.8 Other nonspecific abnormal finding of lung field; Z85.3 Personal history of malignant neoplasm of breast
CPT/HCPCS: 76604

== ENCOUNTER 2025-03-20 13:00 | Outpatient (RCR) | payer MEDICARE, BC, SELFPAY ==
[2024-09-21 13:08] VITALS: BP 152/86; PULSE 69; RESP 18; TEMP 37.6; O2SAT 96
[2024-09-21 13:43] LABS: Calcium* 9.1 mg/dL (8.4-10.6); Creatinine* 1.0 mg/dL (0.5-1.5); Estimated Glomerular Filt Rate 59 ml/min
[2024-09-21] MEDS: ZOLEDRONIC ACID 3.3 MG in 0.9 % SODIUM CHLORIDE 100 ml 100 ML 416.5 MG IVPB (14:15)
[2025-03-20 13:22] VITALS: BP 173/84; PULSE 66; RESP 16; TEMP -13.6; TEMP 7.5; O2SAT 92
[2025-03-20 13:38] LABS: Calcium* 9.4 mg/dL (8.4-10.6); Creatinine* 1.1 mg/dL (0.5-1.5); Est. Creatinine Clearance* 40.38; Estimated Glomerular Filt Rate 53 ml/min
[2025-03-20] MEDS: ZOLEDRONIC ACID 3.3 MG in 0.9 % SODIUM CHLORIDE 100 ml 100 ML 417 MG IVPB (14:28)
[2025-03-20] MEDS: SODIUM CHLORIDE 0.9 % (FLUSH) 10 ML SYRINGE IVF (14:28)
[2025-03-20] MEDS: 0.9 % SODIUM CHLORIDE 500 ML IV (14:28)
== END 2025-03-20 23:59 | disposition home or self-care (01) ==
LOC: CCIC 13:00
PROVIDERS: Clinical Nurse Specialist; PCP Family Medicine; Referring Provider Family Medicine; Visit Provider Internal Medicine Hematology & Oncology
DX: C50.912 Malignant neoplasm of unspecified site of left female breast (principal); Z17.0 Estrogen receptor positive status [ER+]; Z79.811 Long term (current) use of aromatase inhibitors; Z79.83 Long term (current) use of bisphosphonates; M85.80 Other specified disorders of bone density and structure, unspecified site
CPT/HCPCS: 36415; 82310; 82565; 96374; 99214; G0463; J3489; J7030

== ENCOUNTER 2025-05-13 13:18 | Outpatient (CLI) | payer MEDICARE, BC, SELFPAY ==
--- NOTE | 2025-05-13 14:00 | CRLHL7_ITS ---
For Patients: As a result of the Century Cures Act, medical imaging exams and procedure reports are released immediately into your electronic medical record. You may view this report before your referring provider. If you have questions, please contact your health care provider. INDICATION: Breast cancer restaging. TECHNIQUE: CT chest following administration of 75 cc Isovue 370 contrast. COMPARISON: Chest CT 10/31/2024. FINDINGS: Respiratory motion artifact limits assessment for subtle abnormalities. Lungs, pleura, and airways: Unchanged bilateral pulmonary nodules, largest in the left lower lobe measures 1.2 cm (series 3 image 115). No new or enlarging nodules. No focal consolidations. Scattered parenchymal scarring most prominently seen in the lung apices. No focal consolidation. No pleural effusions, pleural thickening, or pneumothorax. Airways are clear. No endobronchial lesion. Heart and vasculature: Heart size is normal. No pericardial effusion. Thoracic aorta and pulmonary arteries are normal in caliber. Three vessel aortic arch. No significant coronary atherosclerosis. Lymph nodes/mediastinum: No mediastinal, hilar, or axillary adenopathy. Visualized portions of the thyroid are within normal limits. Soft tissues: Status post left mastectomy. Small fat containing upper abdominal ventral hernia. Upper abdomen: Stable subcentimeter hypodense lesions in the left hepatic lobe and adjacent to the gallbladder fossa which are too small to characterize but are most likely simple cysts. Larger fluid density simple cyst in the right hepatic lobe. Surgically absent gallbladder. Stable cystic lesion arising from the right kidney. Bones: No acute fracture. No worrisome osseous lesion. IMPRESSION: 1. Slightly limited examination due to respiratory motion artifact. 2. Within limitations, stable exam. Unchanged bilateral pulmonary nodules. Please note that all CT scans at this facility use dose modulation, iterative reconstruction, and/or weight-based dosing when appropriate to reduce radiation dose to as low as reasonably achievable. Dictated by Ford Rangel MD @ 05/14/2025 11:00:50 AM (Electronically Signed)
[2025-05-13 14:01] LABS: Creatinine* 1.1 mg/dL (0.5-1.5)
[2025-05-13 14:02] LABS: Estimated Glomerular Filt Rate 52 ml/min
== END 2025-05-13 13:19 | disposition home or self-care (01) ==
PROVIDERS: PCP Family Medicine; Visit Provider Internal Medicine Hematology & Oncology
DX: R91.8 Other nonspecific abnormal finding of lung field (principal); C50.919 Malignant neoplasm of unspecified site of unspecified female breast
CPT/HCPCS: 36415; 71260; 82565; Q9967